=== PATIENT | female | born 1940 | race Caucasian/White ===

== ENCOUNTER 2016-09-08 16:06 | Emergency (ER) | payer MEDICARE, BC ==
[2016-09-08] MEDS ORDERED: Ibuprofen 400 MG TAB ONE (16:28)
[2016-09-08] MEDS ORDERED: Dexamethasone 4 MG TAB ONE (16:28)
--- NOTE | 2016-09-08 17:59 | ERRECORD ---
[facility] EMERGENCY RECORD HPI FLU-LIKE SYNDROME (16:33 BPIC) CHIEF COMPLAINT: Patient presents for evaluation of body aches, Patient presents for evaluation of fatigue, Patient presents for evaluation of fever, Patient presents for evaluation of upper respiratory infection. HISTORIAN: History provided by patient. LOCATION: Symptoms are generalized. SEVERITY: Maximum severity of symptoms moderate, Currently symptoms are moderate. TIME COURSE: Gradual onset of symptoms, There has been no change in the patient's symptoms over time, are constant. ASSOCIATED WITH: Associated with cough, Associated with headache. EXACERBATED BY: Patient's condition exacerbated by nothing. RELIEVED BY: Patient's condition relieved by nothing, Patient's condition relieved by over the counter medications, Some relief of symptoms transiently. ROS (16:33 BPIC) CONSTITUTIONAL: Negative constitutional review of systems, Historian reports chills, reports fatigue, reports fever, reports malaise. EYES: Negative eye review of systems, Historian denies eye pain, denies eye redness, denies eye discharge. ENT: Negative ears, nose, throat review of systems, Historian denies dysphasia, denies dysphonia, reports rhinorrhea, reports sore throat. CARDIOVASCULAR: Negative cardiovascular review of systems, Historian denies dyspnea on exertion. RESPIRATORY: Negative respiratory review of systems, Historian reports cough, denies shortness of breath, denies sputum. GI: Negative gastrointestinal review of systems, Historian denies abdominal pain, reports anorexia. Pt reports mild nausea. GENITOURINARY MALE: Negative genitourinary review of systems. MUSCULOSKELETAL: Negative musculoskeletal review of systems, Historian reports arthralgias, reports myalgias. SKIN: Negative skin review of systems. NEUROLOGIC: Negative neurologic review of systems, Historian denies focal weakness, denies gait changes, reports headache, denies irritability, denies lethargy. ENDOCRINE: Negative endocrine review of systems. HEMO/LYMPHATIC: Normal hematologic/lymphatic system review. ALLERGIC/IMMUNOLOGIC: Normal allergy/immunologic system review. PSYCHIATRIC: Negative psychiatric review of systems. NOTES: All other ROS negative except as noted in HPI. PAST MEDICAL HISTORY MEDICAL HISTORY: Notes: CANCER UNABLE TO REMEMER, Past medical history includes history of diabetes, Type II, Past medical history includes endocrine &a-1R&a+25V*p+0X*y2494M*c202B*c15G*c2P*p-0X&a-25V&a+1R Name: Orin Hagan : 1940 F75 MedRec: [id number] AcctNum: [id number] Prepared: TueSep 08, 2016 17:54 by Interface Page 1 of 4 pMD [facility] EMERGENCY RECORD disease, hypothyroidism, Past medical history includes history of hypertension, which has been treated, Past medical history includes musculoskeletal disorder, chronic back pain. (16:18 SFRE) FEMALE SURGICAL HISTORY: Surgical history of orthopedic surgery, BACK. (16:18 SFRE) PSYCHIATRIC HISTORY: No previous psychiatric history. (16:18 SFRE) SOCIAL HISTORY: Patient denies alcohol use, Patient denies drug use, Patient has no smoking history. (16:18 SFRE) NOTES: I have reviewed the nurses notes including PMH, PSxH, PSocH and agree with all. (16:33 BPIC) KNOWN ALLERGIES Sulfa (Sulfonamide Antibiotics) CURRENT MEDICATIONS metFORMIN: TABLET : Strength - 1,000 mg : ORAL Patient Dose: 1000 mg Oral 2 times a day. (16:23 SFRE) Onglyza: TABLET : Strength - 5 mg : ORAL Patient Dose: ?. (16:24 SFRE) losartan: TABLET : Strength - 25 mg : ORAL Patient Dose: 10 mg Oral once a day. (16:24 SFRE) VITAL SIGNS VITAL SIGNS: BP: 157/73, Pulse: 110, Resp: 18, Temp: 101.0 (Tympanic), Pain: 0, O2 sat: 98 on Room Air, Time: 09/08/2016 16:12. (16:12 SFRE) Temp: 100.8 (Tympanic), Time: 09/08/2016 17:23. (17:23 SFRE) BP: 130/42, Pulse: 98, Resp: 18, Temp: 100.8 (Oral), Pain: 0, O2 sat: 94 on Room Air, Time: 09/08/2016 17:28. (17:28 SFRE) PHYSICAL EXAM (16:33 BPIC) CONSTITUTIONAL: Vital signs reviewed, Patient appears non toxic, Patient alert and oriented to person, place and time. HEAD: Head exam included findings of head atraumatic, normocephalic. EYES: Eye exam included findings of eyelids normal to inspection, Pupils equally round and reactive to light, Extraocular muscles intact. ENT: Nose exam included findings of, There is some clear rhinorrhea. Nasal exam is otherwise normal., Pharynx, Mild erythema is present., Uvula exam normal, Tonsil exam normal, Mouth exam normal. NECK: Neck exam included findings of normal range of motion, Trachea midline. RESPIRATORY CHEST: Respiratory exam included findings of no &a-1R&a+25V*p+0X*y0585G*c202B*c15G*c2P*p-0X&a-25V&a+1R Name: Orin Hagan : 1940 F75 MedRec: [id number] AcctNum: [id number] Prepared: TueSep 08, 2016 17:54 by Interface Page 2 of 4 pMD [facility] EMERGENCY RECORD respiratory distress, Breath sounds clear, No rhonchi, Chest exam included findings of chest movement symmetrical, Chest expansion equal. CARDIOVASCULAR: Cardiovascular exam included findings of heart rate regular rate and rhythm, Heart sounds normal. ABDOMEN MALE: Abdominal exam included findings of abdomen nontender, Bowel sounds normal. BACK: Back exam normal. UPPER EXTREMITY: Upper extremity exam included findings of inspection normal, Range of motion normal. LOWER EXTREMITY: Lower extremity exam included findings of inspection normal, Range of motion normal. NEURO: Neuro exam findings include patient oriented to person, place and time, Speech normal, Gait normal. SKIN: Skin exam included findings of skin warm, dry, and normal in color. LYMPHATIC: Few shoddy nodes present in submandibular region. PSYCHIATRIC: Psychiatric exam included findings of patient oriented to person place and time, Normal affect. MEDICATION ADMINISTRATION SUMMARY Drug Name: Decadron oral, Dose Ordered: 8 mg, Route: Oral, Status: Given, Time: 16:09/08/2016, Drug Name: ibuprofen, Dose Ordered: 400 mg, Route: Oral, Status: Given, Time: 16:09/08/2016, Detailed record available in Medication Service section. DOCTOR NOTES (16:33 BPIC) TEXT: Signs and symptoms consistent with upper repiratory infection. Although this may be viral in origin, I am concerned that there may be a developing bacterial infection. Rx for antibiotics and close follow up with pcp recommended. Advised pt to return to the ED if she is worsening. PATIENT PLAN: The patient will be discharged, The patient will follow up with primary care physician. PROBLEM LIST No recorded problems DIAGNOSIS (17:23 BPIC) FINAL: PRIMARY: Influenza. PRESCRIPTION (17:23 BPIC) Tamiflu: CAPSULE : 75 mg : ORAL : Quantity: 75 Unit: mg Route: ORAL Schedule: 2 times a day Dispense: 10 Unit: cap(s) May substitute. Refills: No Refills . NOTES: No Refills. &a-1R&a+25V*p+0X*t0011H*c202B*c15G*c2P*p-0X&a-25V&a+1R Name: Orin Hagan : 1940 F75 MedRec: [id number] AcctNum: [id number] Prepared: TueSep 08, 2016 17:54 by Interface Page 3 of 4 pMD [facility] EMERGENCY RECORD DISPOSITION PATIENT: Disposition Type: Discharge, Disposition: *Discharge Home, Condition: Good. (17:23 BPIC) Patient left the department. (17:48 SFRE) Pastor: BPIC=MD Savanah, Zackary SFRE=KEITH Greer, Susi &a-1R&a+25V*p+0X*q7039E*c202B*c15G*c2P*p-0X&a-25V&a+1R Name: Orin Hagan Heriberto : 1940 F75 MedRec: [id number] AcctNum: [id number] Prepared: TueSep 08, 2016 17:54 by Interface Page 4 of 4 pMD [facility]
--- NOTE | 2016-09-08 18:05 | PICIS ---
[facility] EMERGENCY RECORD TRIAGE (TueSep 08, 2016 16:13 SFRE) TRIAGE NOTES: COUGH, CONGESTION, FEVER. (TueSep 08, 2016 16:13 SFRE) PATIENT: NAME: Orin Hagan, AGE: 75, GENDER: female, : [facility] 1940, TIME OF GREET: TueSep 08, 2016 16:07, PREFERRED LANGUAGE: Greenlandic, ETHNICITY: Not or , ECODE BILLING MAP: [facility], SSN: [id number], Zip Code: [address], KG WEIGHT: 51.71, PHONE: , , , PERSON ID: [id number], PCP: Paddy BALLESTEROS RICHARD. (TueSep 08, 2016 16:13 SFRE) COMPLAINT: FLU LIKE SYMPTOMS. (TueSep 08, 2016 16:13 SFRE) ADMISSION: URGENCY: 4 Non Urgent, ADMISSION SOURCE: Home, TRANSPORT: Walk-in, BED: ED -03. (TueSep 08, 2016 16:13 SFRE) PAIN: Pain is constant. (16:18 SFRE) IMMUNIZATIONS: Flu vaccine not up to date, Pneumococcal vaccine not up to date. (16:18 SFRE) PROVIDERS: TRIAGE NURSE: Susi Greer RN. (TueSep 08, 2016 16:13 SFRE) VITAL SIGNS: BP 157/73, Pulse 110, Resp 18, Temp 101.0, (Tympanic), Pain 0, O2 Sat 98, on Room Air, Time 09/08/2016 16:12. (16:12 SFRE) KNOWN ALLERGIES Sulfa (Sulfonamide Antibiotics) CURRENT MEDICATIONS metFORMIN: TABLET : Strength - 1,000 mg : ORAL Patient Dose: 1000 mg Oral 2 times a day. (16:23 SFRE) Onglyza: TABLET : Strength - 5 mg : ORAL Patient Dose: ?. (16:24 SFRE) losartan: TABLET : Strength - 25 mg : ORAL Patient Dose: 10 mg Oral once a day. (16:24 SFRE) VITAL SIGNS VITAL SIGNS: BP: 157/73, Pulse: 110, Resp: 18, Temp: 101.0 (Tympanic), Pain: 0, O2 sat: 98 on Room Air, Time: 09/08/2016 16:12. (16:12 SFRE) Temp: 100.8 (Tympanic), Time: 09/08/2016 17:23. (17:23 SFRE) BP: 130/42, Pulse: 98, Resp: 18, Temp: 100.8 (Oral), Pain: 0, O2 sat: 94 on Room Air, Time: 09/08/2016 17:28. (17:28 SFRE) NURSING ASSESSMENT: ENT (16:20 SFRE) CONSTITUTIONAL: Patient arrives ambulatory, Gait steady, History obtained from patient, Patient appears, generally ill, Patient cooperative, Patient alert, Oriented to person, place and time, Skin warm, Skin dry, Skin, pale in color, Mucous membranes pink, Mucous membranes moist, Patient is &a-1R&a+25V*p+0X*q1972T*c202B*c15G*c2P*p-0X&a-25V&a+1R Name: Orin Hagan : 1940 F75 MedRec: [id number] AcctNum: [id number] Prepared: TueSep 08, 2016 18:45 by Interface Page 1 of 7 pMD [facility] EMERGENCY RECORD well-groomed, Patient complains of flu like symptoms. PAIN: denies pain but looks very uncomfortable, Pain level 4 Hurts [place] More, using faces pain scoring. ENT: Congestion, bilaterally, Mouth and throat assessment findings include mouth inspection normal, Uvula normal, Tonsils normal, Mucous membranes pink, and moist, Able to swallow, Speech normal, Associated with fever, Maximum temperature (degree F) 101.0, tympanically. RESPIRATORY/CHEST: Respiratory assessment findings include respiratory effort easy, Respirations regular, Conversing normally, Neck and chest exam findings include trachea midline, Chest expansion equal, Chest movement symmetrical, no signs of distress, Associated with cough, productive of, yellow sputum, Associated with fever, Maximum temperature 101.0, tympanic. SAFETY: Side rails up, Cart/Stretcher in lowest position, Family at bedside, Call light within reach, Hospital ID band on. NURSING PROCEDURE: DISCHARGE NOTE (17:34 SFRE) DISCHARGE: Patient discharged to home, ambulating without assistance, family driving, accompanied by //partner, Summary of Care printed/ provided, Patient requested and was provided an electronic copy of Discharge Instructions, Discharge instructions given to patient, Simple or moderate discharge teaching performed, by KEITH RIVERA, F/U WITH PCP. RX DIRECTED. RETURN TO ED NEEDED FOR NEW/CONCERNING OR WORSENING SYMPTOMS., Prescriptions given and instructions on side effects given, Name of prescription(s) given: TAMIFLU, Above person(s) verbalized understanding of discharge instructions and follow-up care, Notes: IBUPROFEN/TYLENOL FOR FEVEROR PAIN. INCREASE PO FLUIDS. NURSING PROCEDURE: NURSE NOTES (16:33 SFRE) NURSES NOTES: Notes: FLU AND STREP SWABS OBTAINED, LABELED AND SENT TO LAB. ORDER DETAILS Order Name: Influenza A&B Ag Screen, Status: Active, Time: 16:25 09/08/2016, User: VAHID, - Ordered for: MD Pavon Bryan, - Entered by: MD Pavon Bryan - [facility] Sep 08, 2016 16:25, - Quantity: 1, Order Name: Strep Group A Screen, Status: Active, Time: 16:25 09/08/2016, User: VAHID, - Ordered for: MD Pavon Bryan, - Entered by: MD Pavon Bryan - [facility] Sep 08, 2016 16:25, - Quantity: 1. MEDICATION ADMINISTRATION SUMMARY &a-1R&a+25V*p+0X*c5498K*c202B*c15G*c2P*p-0X&a-25V&a+1R Name: Orin Hagan : 1940 F75 MedRec: [id number] AcctNum: [id number] Prepared: TueSep 08, 2016 18:45 by Interface Page 2 of 7 pMD [facility] EMERGENCY RECORD Drug Name: Decadron oral, Dose Ordered: 8 mg, Route: Oral, Status: Given, Time: 16:31 09/08/2016, Drug Name: ibuprofen, Dose Ordered: 400 mg, Route: Oral, Status: Given, Time: 16:31 09/08/2016, Detailed record available in Medication Service section. MEDICATION SERVICE (16:31 [facility]) Decadron oral: Order: Decadron oral (dexamethasone) - Dose: 8 mg : Oral Schedule: Now Ordered by: Jasper Pavon MD Entered by: Jasper Pavon MD TueSep 08, 2016 16:25 , Acknowledged by: Susi Greer RN TueSep 08, 2016 16:27 Documented as given by: Susi Greer RN TueSep 08, 2016 16:31 Patient, Medication, Dose, Route and Time verified prior to administration. Amount given: 8mg, Site: Medication administered P.O., Correct patient, time, route, dose and medication confirmed prior to administration, Patient advised of actions and side-effects prior to administration, Allergies confirmed and medications reviewed prior to administration, Patient in position of comfort, Side rails up, Cart in lowest position, Family at bedside. ibuprofen: Order: ibuprofen - Dose: 400 mg : Oral Ordered by: Jasper Pavon MD Entered by: Jasper Pavon MD TueSep 08, 2016 16:26 , Acknowledged by: Susi Greer RN TueSep 08, 2016 16:27 Documented as given by: Susi Greer RN TueSep 08, 2016 16:31 Patient, Medication, Dose, Route and Time verified prior to administration. Amount given: 400mg, Site: Medication administered P.O., Correct patient, time, route, dose and medication confirmed prior to administration, Patient advised of actions and side-effects prior to administration, Allergies confirmed and medications reviewed prior to administration, Patient in position of comfort, Side rails up, Cart in lowest position, Family at bedside. HPI FLU-LIKE SYNDROME (16:33 BPIC) CHIEF COMPLAINT: Patient presents for evaluation of body aches, Patient presents for evaluation of fatigue, Patient presents for evaluation of fever, Patient presents for evaluation of upper respiratory infection. HISTORIAN: History provided by patient. LOCATION: Symptoms are generalized. SEVERITY: Maximum severity of symptoms moderate, Currently symptoms are moderate. TIME COURSE: Gradual onset of symptoms, There has been no change in the patient's symptoms over time, are constant. ASSOCIATED WITH: Associated with cough, Associated with headache. EXACERBATED BY: Patient's condition exacerbated by nothing. RELIEVED BY: Patient's &a-1R&a+25V*p+0X*n9233L*c202B*c15G*c2P*p-0X&a-25V&a+1R Name: Orin Hagan : 1940 F75 MedRec: [id number] AcctNum: [id number] Prepared: TueSep 08, 2016 18:45 by Interface Page 3 of 7 pMD [facility] EMERGENCY RECORD condition relieved by nothing, Patient's condition relieved by over the counter medications, Some relief of symptoms transiently. ROS (16:33 BPIC) CONSTITUTIONAL: Negative constitutional review of systems, Historian reports chills, reports fatigue, reports fever, reports malaise. EYES: Negative eye review of systems, Historian denies eye pain, denies eye redness, denies eye discharge. ENT: Negative ears, nose, throat review of systems, Historian denies dysphasia, denies dysphonia, reports rhinorrhea, reports sore throat. CARDIOVASCULAR: Negative cardiovascular review of systems, Historian denies dyspnea on exertion. RESPIRATORY: Negative respiratory review of systems, Historian reports cough, denies shortness of breath, denies sputum. GI: Negative gastrointestinal review of systems, Historian denies abdominal pain, reports anorexia. Pt reports mild nausea. GENITOURINARY MALE: Negative genitourinary review of systems. MUSCULOSKELETAL: Negative musculoskeletal review of systems, Historian reports arthralgias, reports myalgias. SKIN: Negative skin review of systems. NEUROLOGIC: Negative neurologic review of systems, Historian denies focal weakness, denies gait changes, reports headache, denies irritability, denies lethargy. ENDOCRINE: Negative endocrine review of systems. HEMO/LYMPHATIC: Normal hematologic/lymphatic system review. ALLERGIC/IMMUNOLOGIC: Normal allergy/immunologic system review. PSYCHIATRIC: Negative psychiatric review of systems. NOTES: All other ROS negative except as noted in HPI. PAST MEDICAL HISTORY MEDICAL HISTORY: Notes: CANCER UNABLE TO REMEMER, Past medical history includes history of diabetes, Type II, Past medical history includes endocrine disease, hypothyroidism, Past medical history includes history of hypertension, which has been treated, Past medical history includes musculoskeletal disorder, chronic back pain. (16:18 SFRE) FEMALE SURGICAL HISTORY: Surgical history of orthopedic surgery, BACK. (16:18 SFRE) PSYCHIATRIC HISTORY: No previous psychiatric history. (16:18 SFRE) SOCIAL HISTORY: Patient denies alcohol use, Patient denies drug use, Patient has no smoking history. (16:18 SFRE) NOTES: I have reviewed the nurses notes including PMH, PSxH, PSocH and agree with all. (16:33 BPIC) PHYSICAL EXAM (16:33 BPIC) &a-1R&a+25V*p+0X*n9926I*c202B*c15G*c2P*p-0X&a-25V&a+1R Name: Orin Hagan : 1940 F75 MedRec: [id number] AcctNum: [id number] Prepared: TueSep 08, 2016 18:45 by Interface Page 4 of 7 pMD [facility] EMERGENCY RECORD CONSTITUTIONAL: Vital signs reviewed, Patient appears non toxic, Patient alert and oriented to person, place and time. HEAD: Head exam included findings of head atraumatic, normocephalic. EYES: Eye exam included findings of eyelids normal to inspection, Pupils equally round and reactive to light, Extraocular muscles intact. ENT: Nose exam included findings of, There is some clear rhinorrhea. Nasal exam is otherwise normal., Pharynx, Mild erythema is present., Uvula exam normal, Tonsil exam normal, Mouth exam normal. NECK: Neck exam included findings of normal range of motion, Trachea midline. RESPIRATORY CHEST: Respiratory exam included findings of no respiratory distress, Breath sounds clear, No rhonchi, Chest exam included findings of chest movement symmetrical, Chest expansion equal. CARDIOVASCULAR: Cardiovascular exam included findings of heart rate regular rate and rhythm, Heart sounds normal. ABDOMEN MALE: Abdominal exam included findings of abdomen nontender, Bowel sounds normal. BACK: Back exam normal. UPPER EXTREMITY: Upper extremity exam included findings of inspection normal, Range of motion normal. LOWER EXTREMITY: Lower extremity exam included findings of inspection normal, Range of motion normal. NEURO: Neuro exam findings include patient oriented to person, place and time, Speech normal, Gait normal. SKIN: Skin exam included findings of skin warm, dry, and normal in color. LYMPHATIC: Few shoddy nodes present in submandibular region. PSYCHIATRIC: Psychiatric exam included findings of patient oriented to person place and time, Normal affect. EVENTS TRANSFER: Triage to Emergency Main ED -03. (TueSep 08, 2016 16:13 SFRE) Removed from Emergency Main ED -03. (17:48 SFRE) DOCTOR NOTES (16:33 BPIC) TEXT: Signs and symptoms consistent with upper repiratory infection. Although this may be viral in origin, I am concerned that there may be a developing bacterial infection. Rx for antibiotics and close follow up with pcp recommended. Advised pt to return to the ED if she is worsening. PATIENT PLAN: The patient will be discharged, The patient will follow up with primary care physician. PROBLEM LIST &a-1R&a+25V*p+0X*r2423C*c202B*c15G*c2P*p-0X&a-25V&a+1R Name: Orin Hagan : 1940 F75 MedRec: [id number] AcctNum: [id number] Prepared: TueSep 08, 2016 18:45 by Interface Page 5 of 7 pMD [facility] EMERGENCY RECORD No recorded problems DIAGNOSIS (17:23 BPIC) FINAL: PRIMARY: Influenza. DISPOSITION PATIENT: Disposition Type: Discharge, Disposition: *Discharge Home, Condition: Good. (17:23 BPIC) Patient left the department. (17:48 SFRE) INSTRUCTION (17:23 BPIC) DISCHARGE: INFLUENZA (ADULT). FOLLOWUP: Paddy BALLESTEROS, [address], [address], [place] [address], . SPECIAL: Please follow up with your physician in the next 2-3 days. Return to the Emergency Room with any worsening of your symptoms or other emergent concerns. Thank you for choosing [facility] Emergency Department for your care today, and God Bless You!. PRESCRIPTION (17:23 BPIC) Tamiflu: CAPSULE : 75 mg : ORAL : Quantity: 75 Unit: mg Route: ORAL Schedule: 2 times a day Dispense: 10 Unit: cap(s) May substitute. Refills: No Refills . NOTES: No Refills. IMAGING (17:37 SFRE) *DISCHARGE INSTRUCTIONS RECEIPT: Image captured from scanner. *SUPPLY CHARGE SHEET: Image captured from scanner. ADMIN (18:34 BPIC) DIGITAL SIGNATURE: MD Pavon Bryan. RESULTS (17:29 SFRE) MICROBIOLOGY: Influenza A&B Ag Screen: [id number] Collection DT: TueSep 08, 2016 16:34, See comment below , @ ER ROOM#: ED-03 Source: Nasal swab Spec Desc: , *Influenza A Antigen: POSITIVE for the , * presence of , * INFLUENZA A Antigen , * - H , Influenza B Antigen: NEGATIVE for the , presence of , INFLUENZA B Antigen , The rapid Flu A&B test can distinguish between influenza A , Influenza A&B Ag Screen See comment below , and B viruses, but it does not differentiate influenza , Influenza A&B Ag Screen See comment below , subtypes. , &a-1R&a+25V*p+0X*g6342O*c202B*c15G*c2P*p-0X&a-25V&a+1R Name: Orin Hagan : 1940 F75 MedRec: [id number] AcctNum: [id number] Prepared: TueSep 08, 2016 18:45 by Interface Page 6 of 7 pMD [facility] EMERGENCY RECORD Influenza A&B Ag Screen See comment below , Influenza A&B Ag Screen See comment below , Influenza A&B Ag Screen See comment below , Influenza A&B Ag Screen See comment below , characteristics of this device with human specimens infected , Influenza A&B Ag Screen See comment below , with the 2008 H1N1 influenza virus have not been , Influenza A&B Ag Screen See comment below , established. For example: this test cannot distinguish , Influenza A&B Ag Screen See comment below , influenza infections caused by novel H1N1 influenza A , Influenza A&B Ag Screen See comment below , viruses versus seasonal influenza A viruses. , Influenza A&B Ag Screen See comment below , , Influenza A&B Ag Screen See comment below , A negative result does not exclude influenza virus , Influenza A&B Ag Screen See comment below , infection; therefore, if more conclusive testing is desired, , Influenza A&B Ag Screen See comment below , follow up confirmatory testing is warranted., Influenza A&B Ag Screen See comment below . Strep Group A Screen: [id number] Collection DT: TueSep 08, 2016 16:34, See comment below , @ ER ROOM#: ED-03 Source: Throat Spec Desc: PENDING, Strep A Negative CDC recommends , confirmation by , culture on all , negative , Strep negative line 1 Group A , Streptococcus rapid , screens. Please , order , Strep negative line 2 a throat culture if , clinically , indicated. , Rapid Strep Screen:Throat Negative . Pastor: BPIC=MD Savanah, [place] SFRE=KEITH Greer, Susi &a-1R&a+25V*p+0X*m0743N*c202B*c15G*c2P*p-0X&a-25V&a+1R Name: Orin Hagan Heriberto : 1940 F75 MedRec: [id number] AcctNum: [id number] Prepared: Raúl Sep 08, 2016 18:45 by Interface Page 7 of 7 pMD MTDD
--- NOTE | 2016-09-08 18:08 | ERRECORD ---
[facility] HPI FLU-LIKE SYNDROME (16:33 BPIC) CHIEF COMPLAINT: Patient presents for evaluation of body aches, Patient presents for evaluation of fatigue, Patient presents for evaluation of fever, Patient presents for evaluation of upper respiratory infection. HISTORIAN: History provided by patient. LOCATION: Symptoms are generalized. SEVERITY: Maximum severity of symptoms moderate, Currently symptoms are moderate. TIME COURSE: Gradual onset of symptoms, There has been no change in the patient's symptoms over time, are constant. ASSOCIATED WITH: Associated with cough, Associated with headache. EXACERBATED BY: Patient's condition exacerbated by nothing. RELIEVED BY: Patient's condition relieved by nothing, Patient's condition relieved by over the counter medications, Some relief of symptoms transiently. ROS (16:33 BPIC) CONSTITUTIONAL: Negative constitutional review of systems, Historian reports chills, reports fatigue, reports fever, reports malaise. EYES: Negative eye review of systems, Historian denies eye pain, denies eye redness, denies eye discharge. ENT: Negative ears, nose, throat review of systems, Historian denies dysphasia, denies dysphonia, reports rhinorrhea, reports sore throat. CARDIOVASCULAR: Negative cardiovascular review of systems, Historian denies dyspnea on exertion. RESPIRATORY: Negative respiratory review of systems, Historian reports cough, denies shortness of breath, denies sputum. GI: Negative gastrointestinal review of systems, Historian denies abdominal pain, reports anorexia. Pt reports mild nausea. GENITOURINARY MALE: Negative genitourinary review of systems. MUSCULOSKELETAL: Negative musculoskeletal review of systems, Historian reports arthralgias, reports myalgias. SKIN: Negative skin review of systems. NEUROLOGIC: Negative neurologic review of systems, Historian denies focal weakness, denies gait changes, reports headache, denies irritability, denies lethargy. ENDOCRINE: Negative endocrine review of systems. HEMO/LYMPHATIC: Normal hematologic/lymphatic system review. ALLERGIC/IMMUNOLOGIC: Normal allergy/immunologic system review. PSYCHIATRIC: Negative psychiatric review of systems. NOTES: All other ROS negative except as noted in HPI. PAST MEDICAL HISTORY MEDICAL HISTORY: Notes: CANCER UNABLE TO REMEMER, Past medical history includes history of diabetes, Type II, Past medical history includes endocrine &a-1R&a+25V*p+0X*[id number]*c202B*c15G*c2P*p-0X&a-25V&a+1R Name: Orin Hagan : 1940 F75 MedRec: [id number] AcctNum: [id number] Prepared: TueSep 08, 2016 18:39 by Interface Page 1 of 4 pMD [facility] RECORD disease, hypothyroidism, Past medical history includes history of hypertension, which has been treated, Past medical history includes musculoskeletal disorder, chronic back pain. (16:18 SFRE) FEMALE SURGICAL HISTORY: Surgical history of orthopedic surgery, BACK. (16:18 SFRE) PSYCHIATRIC HISTORY: No previous psychiatric history. (16:18 SFRE) SOCIAL HISTORY: Patient denies alcohol use, Patient denies drug use, Patient has no smoking history. (16:18 SFRE) NOTES: I have reviewed the nurses notes including PMH, PSxH, PSocH and agree with all. (16:33 BPIC) KNOWN ALLERGIES Sulfa (Sulfonamide Antibiotics) CURRENT MEDICATIONS metFORMIN: TABLET : Strength - 1,000 mg : ORAL Patient Dose: 1000 mg Oral 2 times a day. (16:23 SFRE) Onglyza: TABLET : Strength - 5 mg : ORAL Patient Dose: ?. (16:24 SFRE) losartan: TABLET : Strength - 25 mg : ORAL Patient Dose: 10 mg Oral once a day. (16:24 SFRE) VITAL SIGNS VITAL SIGNS: BP: 157/73, Pulse: 110, Resp: 18, Temp: 101.0 (Tympanic), Pain: 0, O2 sat: 98 on Room Air, Time: 09/08/2016 16:12. (16:12 SFRE) Temp: 100.8 (Tympanic), Time: 09/08/2016 17:23. (17:23 SFRE) BP: 130/42, Pulse: 98, Resp: 18, Temp: 100.8 (Oral), Pain: 0, O2 sat: 94 on Room Air, Time: 09/08/2016 17:28. (17:28 SFRE) PHYSICAL EXAM (16:33 BPIC) CONSTITUTIONAL: Vital signs reviewed, Patient appears non toxic, Patient alert and oriented to person, place and time. HEAD: Head exam included findings of head atraumatic, normocephalic. EYES: Eye exam included findings of eyelids normal to inspection, Pupils equally round and reactive to light, Extraocular muscles intact. ENT: Nose exam included findings of, There is some clear rhinorrhea. Nasal exam is otherwise normal., Pharynx, Mild erythema is present., Uvula exam normal, Tonsil exam normal, Mouth exam normal. NECK: Neck exam included findings of normal range of motion, Trachea midline. RESPIRATORY CHEST: Respiratory exam included findings of no &a-1R&a+25V*p+0X*t5630C*c202B*c15G*c2P*p-0X&a-25V&a+1R Name: Orin Hagan : 1940 F75 MedRec: [id number] AcctNum: [id number] Prepared: TueSep 08, 2016 18:39 by Interface Page 2 of 4 pMD [facility] RECORD respiratory distress, Breath sounds clear, No rhonchi, Chest exam included findings of chest movement symmetrical, Chest expansion equal. CARDIOVASCULAR: Cardiovascular exam included findings of heart rate regular rate and rhythm, Heart sounds normal. ABDOMEN MALE: Abdominal exam included findings of abdomen nontender, Bowel sounds normal. BACK: Back exam normal. UPPER EXTREMITY: Upper extremity exam included findings of inspection normal, Range of motion normal. LOWER EXTREMITY: Lower extremity exam included findings of inspection normal, Range of motion normal. NEURO: Neuro exam findings include patient oriented to person, place and time, Speech normal, Gait normal. SKIN: Skin exam included findings of skin warm, dry, and normal in color. LYMPHATIC: Few shoddy nodes present in submandibular region. PSYCHIATRIC: Psychiatric exam included findings of patient oriented to person place and time, Normal affect. MEDICATION ADMINISTRATION SUMMARY Drug Name: Decadron oral, Dose Ordered: 8 mg, Route: Oral, Status: Given, Time: 16:09/08/2016, Drug Name: ibuprofen, Dose Ordered: 400 mg, Route: Oral, Status: Given, Time: 16:09/08/2016, Detailed record available in Medication Service section. DOCTOR NOTES (16:33 BPIC) TEXT: Signs and symptoms consistent with upper repiratory infection. Although this may be viral in origin, I am concerned that there may be a developing bacterial infection. Rx for antibiotics and close follow up with pcp recommended. Advised pt to return to the ED if she is worsening. PATIENT PLAN: The patient will be discharged, The patient will follow up with primary care physician. PROBLEM LIST No recorded problems DIAGNOSIS (17:23 BPIC) FINAL: PRIMARY: Influenza. PRESCRIPTION (17:23 BPIC) Tamiflu: CAPSULE : 75 mg : ORAL : Quantity: 75 Unit: mg Route: ORAL Schedule: 2 times a day Dispense: 10 Unit: cap(s) May substitute. Refills: No Refills . NOTES: No Refills. &a-1R&a+25V*p+0X*d5461W*c202B*c15G*c2P*p-0X&a-25V&a+1R Name: Orin Hagan : 1940 F75 MedRec: [id number] AcctNum: [id number] Prepared: TueSep 08, 2016 18:39 by Interface Page 3 of 4 pMD [facility] RECORD DISPOSITION PATIENT: Disposition Type: Discharge, Disposition: *Discharge Home, Condition: Good. (17:23 BPIC) Patient left the department. (17:48 SFRE) Pastor: BPIC=MD Savanah, Zackary SFRE=KEITH Greer, Susi &a-1R&a+25V*p+0X*x3962C*c202B*c15G*c2P*p-0X&a-25V&a+1R Name: Orin Hagan Heriberto : 1940 F75 MedRec: [id number] AcctNum: [id number] Prepared: TueSep 08, 2016 18:39 by Interface Page 4 of 4 pMD [facility]
== END 2016-09-08 17:35 | disposition home or self-care (01) ==
LOC: MADERS 16:06
DX: J11.1 Influenza due to unidentified influenza virus with other respiratory manifestations (principal); E03.9 Hypothyroidism, unspecified; E11.9 Type 2 diabetes mellitus without complications; I10 Essential (primary) hypertension
CPT/HCPCS: 87430; 99283; J8540

== ENCOUNTER 2017-02-21 16:24 | Inpatient (IN) | payer MEDICARE, BC ==
[2017-02-21] MEDS ORDERED: Ondansetron ODT 4 MG TAB PO PRN (17:04)
[2017-02-21] MEDS ORDERED: Dextrose 5% in Water 1,000 ML IV PRN (17:08)
[2017-02-21] MEDS ORDERED: HumaLOG 300 UNITS/3 ML VIAL SC PRN (17:08)
[2017-02-21] MEDS ORDERED: Dextrose 50% Abboject 50 ML SYRINGE SLOW IVP PRN (17:08)
[2017-02-21 17:58] LABS: Band 13 % (5-11); Elliptocytes SLIGHT = 2-5 cells (100X) (0-1/hpf); Hemoglobin 10.3 g/dL (12.0-16.0); Lymphocytes 13 % (21-51); MDiff Complete? YES; Mean Corpuscular HGB CONC 32.9 g/dL (32.0-36.0); Mean Corpuscular Hemoglobin 31.4 pg (27.0-31.0); Mean Corpuscular Volume 95.7 fl (81.0-99.0); Mean Platelet Volume 6.8 fL (7.4-10.4); Neutrophil 74 % (42-75); Platelet Count 187 thou/uL (130-400); RBC Distribution Width 15.4 % (11.5-14.5); Red Blood Cell (RBC) Count 3.27 mill/uL (4.20-5.40); Tear Drops SLIGHT = 2-5 cells (100X) (0-1/hpf); White Blood Cell (WBC) Count 20.9 thou/uL (4.8-10.8)
[2017-02-21 18:05] LABS: ALT (SGPT) 24 U/L (8-55); AST (SGOT) 20 U/L (5-34); Albumin 3.8 g/dL (3.4-4.8); Alkaline Phosphatase 65 U/L (40-150); Anion Gap 18 mmol/L (10-20); BUN (Urea Nitrogen) 23 mg/dL (9.8-20.1); Bilirubin, Total 0.6 mg/dL (0.2-1.2); Calc. Creatinine Clearance 28 mL/min (70-130); Calcium 9.7 mg/dL (7.8-10.44); Carbon Dioxide 22 mmol/L (23-31); Chloride 103 mmol/L (98-107); Estimated GFR-MDRD 37; Globulin 2.8 g/dL (2.4-3.5); Glucose 207 mg/dL (83-110); Potassium 4.5 mmol/L (3.5-5.1); Protein, Total 6.6 g/dL (6.0-8.3); Sodium 138 mmol/L (136-145)
[2017-02-21] MEDS: Sodium Chloride 0.9% 1,000 ML IV SCH (18:16)
[2017-02-21 18:25] LABS: Bilirubin Negative (Negative); Clarity Cloudy (Clear); Glucose, Urine (Dipstick) Negative (Negative); Leukocyte Large (Negative); Nitrite Positive (Negative); Protein, Urine (Dipstick) > or equal to 300 mg/dL (Neg-Trace); Urobilinogen 0.2 mg/dL (0.2-1.0)
[2017-02-21 18:26] LABS: Bacteria/HPF 1+ HPF (None Seen); Blood, Urine Moderate (Negative); Other Microscopic Description C&S SET UP; Squamous Epithelial 0-3 HPF (0-3)
--- NOTE | 2017-02-21 19:35 | CT ---
CT HEAD WITHOUT CONTRAST 02/21/2017 HISTORY: Episodes of confusion. COMPARISON: None available. TECHNIQUE: Serial axial CT imaging at 5 mm intervals, from the vertex through the skull base, without contrast. FINDINGS: The imaged paranasal sinuses/mastoid air cells demonstrate mild mucosal thickening within the left s phenoid sinus. There is no displaced calvarial fracture. There is atherosclerotic calcification of the cavernous carotid arteries. There is no intracranial hemorrhage, midline shift, mass effect, o r ventricular enlargement. Mild cerebral volume loss noted. IMPRESSION: No intracranial hemorrhage. POS: [facility]
[2017-02-21] MEDS: Alogliptin Benzoate 25 MG TABLET PO SCH (20:46)
[2017-02-22] MEDS: Acetaminophen 325 MG TAB PO PRN ×2 (00:20→12:02)
[2017-02-22] MEDS: Levothyroxine Sodium 25 MCG TAB PO SCH (05:06)
--- NOTE | 2017-02-22 06:45 | HP ---
DATE OF ADMISSION: 02/21/2017 PRIMARY CARE PHYSICIAN: Diane Kimball M.D. ADMITTING PHYSICIAN: Diane Kimball M.D. CHIEF COMPLAINT: Fever, chills, vomiting, dysuria, uncontrolled hyperglycemia, and confusion. HISTORY OF PRESENT ILLNESS: Ms. Hagan is a 76-year-old female with history of diabetes type 2, colon cancer in 2012, hypothyroidism, depression, hyperlipidemia, hypertension, who presented to my office today due to 1-day history of hematuria, fever, chills, vomiting, decreased oral intake, and right lower quadrant pain that started yesterday. Patient stated she vomited about 3- 4 times yesterday and had fevers and chills. She states she woke up early this morning, feeling very cold and clammy, shaky, just not feeling well. She attempted to call daughter and was unable to reach, so she called a friend. Daughter states she tried calling mother multiple times, but the house phone rung and nobody picked up, but by the time daughter called 911 as she was scared something was going on. Daughter and EMS got to the house, patient was there with the house phone in hand and did not answer the phone stating she never heard it ring. Patient during interrogation of questions, was unable to answer majority of the questions, and she was noted to have blood sugars in the 350s. Patient was given 16 units of Humalog and she had declined going to the emergency room then. Patient woke up this morning with still elevated blood sugar, feeling very weak, lethargic, and daughter decided to bring her in today. Patient states she has not had anything to eat or drink in about 2 days. She lives with her aged , who is also hard of hearing and he was in unaware of events that happened overnight as he did not wake up through it all. Patient complains of general weakness. Denies any falls, denies any head trauma. Daughter concerned about possibility of stroke or some acute illness. She denies any history of UTIs in the past or any history of hematuria in the past. When I evaluated the patient, she was able to answer questions. She was oriented x3. She appears to be very pale and weak. Patient, daughter, and myself made a decision, it will be best to admit patient for IV antibiotics and IV fluids and further workup as deemed necessary. PAST MEDICAL HISTORY: Hypertension, hypothyroidism, colon cancer in 2012, diabetes type 2, depression, carotid blockage, and iron infusions x2. PAST SURGICAL HISTORY: Spine surgery and compression fractures. FAMILY HISTORY: Noncontributory. SOCIAL HISTORY: Former smoker. Lived with elderly . No alcohol or illicit drug use. ALLERGIES: SULFA, TAMIFLU, TAPE, TETANUS. CODE STATUS: FULL CODE. MEDICATIONS: Metformin 1000 mg q.a.m., 500 mg at bedtime; Onglyza 5 mg daily; levothyroxine of 25 mcg half tablet on an empty stomach in the morning; Crestor one tablet every day; losartan 250 mg once a day; fluoxetine 10 mg once a day, takes every other day; aspirin 81 mg once daily; multivitamin daily; Humalog sliding scale; probiotic 1 capsule daily; multivitamin 1 capsule daily; vitamin D3 of 2000 units 1 cap daily. REVIEW OF SYSTEMS: Complete review of systems was negative, otherwise mentioned in H\T\P or below. Constitutional: Denies weight loss, weight gain. Complains of fevers, chills, lethargy. Cardiovascular: Denies chest pain, palpitation, orthopnea. Respiratory: Denies cough, shortness of breath, congestion. Gastrointestinal: Complains of abdominal pain, poor appetite. Denies diarrhea or constipation. Genitourinary: Complains of urinary frequency , dysuria, hematuria, or urgency. Musculoskeletal: Complains of left lower back pain. Denies joint pain, swelling, pain, erythema. Neurological: Noted to be confused. Denies headaches or blurry vision. Skin: Denies rashes, bleeding tendency. HEENT: Denies nosebleeds, sore throats double vision. PHYSICAL EXAMINATION: VITAL SIGNS: Temperature 98.3, pulse 90, respiration rate 18, blood pressure 110/42, O2 sat 97% on room air. GENERAL: Patient is a very pleasant 76-year-old female, mildly ill appearing, in no apparent distress. HEENT: Normocephalic, atraumatic. Pupils round and reactive to light. Sclerae nonicteric. Oral mucosa membranes dry. Conjunctivae pale. NECK: Supple without thyromegaly or lymphadenopathy. No JVD. CARDIOVASCULAR: S1, S2, no murmurs. LUNGS: Clear to auscultation bilaterally. ABDOMEN: Positive bowel sounds, soft, positive suprapubic tenderness. Positive CVA to the right. EXTREMITIES: No clubbing, cyanosis, or edema. NEUROLOGIC: Alert, awake, oriented x3. No focal deficits. ASSESSMENT AND PLAN: This is a 76-year-old female with a history of colon cancer in 2011, diabetes mellitus, hyperlipidemia, depression, hypothyroidism, who presented to the office complaining of dysuria, confusion, nausea, vomiting, dehydration. Patient is admitted to the medical floor for urinary tract infection, dehydration, and confusion. Patient will be started on IV antibiotic with Levaquin once a day. We will restart patient's home medications. We will order stat labs, CBC, CMP, urinalysis, urine culture. We will order CAT scan of the head due to episodes of confusion. We placed patient on IV fluids and normal saline at 100 mL per hour. We will place patient on sliding scale with Humalog. We will replete electrolytes and monitor for any hemodynamic instability. We will place patient on gastrointestinal prophylaxis with Protonix and deep venous thrombosis prophylaxis with TORY hose. The case discussed with daughter in room with patient. CODE STATUS: Patient is a FULL CODE. DISPOSITION: Anticipate greater than 2 midnights stay. Given dehydration. Dysuria, hematuria, episodes of hyperglycemia, and confusion. MTDD
[2017-02-22] MEDS: Sodium Chloride 0.9% 1,000 ML IV SCH ×2 (06:59→16:40)
[2017-02-22] MEDS: HumaLOG 300 UNITS/3 ML VIAL SC PRN (07:50)
[2017-02-22] MEDS: Aspirin 81 mg Enteric Coated Tablet PO SCH (08:21)
[2017-02-22] MEDS: Multivit, Therapeutic 1 TAB PO SCH (08:21)
[2017-02-22] MEDS: Losartan Potassium 25 MG TAB PO SCH (08:21)
[2017-02-22] MEDS: metFORMIN HCl XR 500 MG TAB PO SCH (08:21)
[2017-02-22] MEDS: Floranex Packet PO SCH (08:21)
[2017-02-22 14:16] VITALS: BMI 21.7
[2017-02-22] MEDS: Alogliptin Benzoate 25 MG TABLET PO SCH (21:09)
[2017-02-22] MEDS ORDERED: Loperamide HCl 2 MG CAP PO PRN (21:53)
[2017-02-22] MEDS ORDERED: Loperamide HCl 2 MG CAP PO SCH (22:00)
[2017-02-23] MEDS: Acetaminophen 325 MG TAB PO PRN ×2 (00:21→19:57)
[2017-02-23] MEDS: Sodium Chloride 0.9% 1,000 ML IV SCH ×4 (05:16→17:54)
[2017-02-23] MEDS: Levothyroxine Sodium 25 MCG TAB PO SCH (05:17)
[2017-02-23 05:55] LABS: Anion Gap 11 mmol/L (10-20); BUN (Urea Nitrogen) 20 mg/dL (9.8-20.1); Calc. Creatinine Clearance 26 mL/min (70-130); Calcium 8.6 mg/dL (7.8-10.44); Carbon Dioxide 20 mmol/L (23-31); Chloride 113 mmol/L (98-107); Estimated GFR-MDRD 34; Glucose 157 mg/dL (83-110); Potassium 3.7 mmol/L (3.5-5.1); Sodium 140 mmol/L (136-145)
[2017-02-23 06:10] LABS: Hemoglobin 8.2 g/dL (12.0-16.0); Mean Corpuscular HGB CONC 32.6 g/dL (32.0-36.0); Mean Corpuscular Hemoglobin 31.3 pg (27.0-31.0); Mean Corpuscular Volume 96.1 fl (81.0-99.0); Mean Platelet Volume 7.1 fL (7.4-10.4); Platelet Count 108 thou/uL (130-400); RBC Distribution Width 15.7 % (11.5-14.5); White Blood Cell (WBC) Count 9.1 thou/uL (4.8-10.8)
[2017-02-23 06:38] LABS: Manual Diff?? YES
[2017-02-23 06:39] LABS: Band 2 % (5-11); Eosinophils 1 % (0-10); Lymphocytes 5 % (21-51); MDiff Complete? YES; Monocytes 4 % (0-10); Neutrophil 88 % (42-75); RBC Morphology Normal
[2017-02-23 06:40] LABS: PLT Morphology Comment Appears Decreased
[2017-02-23] MEDS: metFORMIN HCl XR 500 MG TAB PO SCH (09:25)
[2017-02-23] MEDS: Losartan Potassium 25 MG TAB PO SCH (09:25)
[2017-02-23] MEDS: Multivit, Therapeutic 1 TAB PO SCH (09:25)
[2017-02-23] MEDS: Aspirin 81 mg Enteric Coated Tablet PO SCH (09:25)
[2017-02-23] MEDS: Floranex Packet PO SCH (09:26)
[2017-02-23] MEDS: FLUoxetine HCl 10 MG CAP PO SCH (09:26)
[2017-02-23] MEDS: HumaLOG 300 UNITS/3 ML VIAL SC PRN ×2 (12:15→17:00)
[2017-02-23] MEDS: Alogliptin Benzoate 25 MG TABLET PO SCH (20:00)
[2017-02-24] MEDS: Sodium Chloride 0.9% 1,000 ML IV SCH (02:15)
[2017-02-24 05:44] LABS: Anion Gap 12 mmol/L (10-20); BUN (Urea Nitrogen) 17 mg/dL (9.8-20.1); Calc. Creatinine Clearance 26 mL/min (70-130); Calcium 8.7 mg/dL (7.8-10.44); Carbon Dioxide 20 mmol/L (23-31); Chloride 112 mmol/L (98-107); Estimated GFR-MDRD 35; Glucose 208 mg/dL (83-110); Potassium 3.9 mmol/L (3.5-5.1); Sodium 140 mmol/L (136-145)
[2017-02-24 05:51] LABS: Hemoglobin 8.2 g/dL (12.0-16.0); Lymphocytes 13 % (21-51); MDiff Complete? YES; Mean Corpuscular HGB CONC 32.3 g/dL (32.0-36.0); Mean Corpuscular Hemoglobin 31.2 pg (27.0-31.0); Mean Corpuscular Volume 96.3 fl (81.0-99.0); Mean Platelet Volume 7.5 fL (7.4-10.4); Monocytes 3 % (0-10); Neutrophil 84 % (42-75); PLT Morphology Comment Appears Decreased; Platelet Count 102 thou/uL (130-400); Red Blood Cell (RBC) Count 2.64 mill/uL (4.20-5.40); White Blood Cell (WBC) Count 6.4 thou/uL (4.8-10.8)
[2017-02-24] MEDS: Levothyroxine Sodium 25 MCG TAB PO SCH (05:55)
[2017-02-24] MEDS: HumaLOG 300 UNITS/3 ML VIAL SC PRN ×2 (07:45→17:01)
[2017-02-24] MEDS: Aspirin 81 mg Enteric Coated Tablet PO SCH (07:47)
[2017-02-24] MEDS: Multivit, Therapeutic 1 TAB PO SCH (07:47)
[2017-02-24] MEDS: metFORMIN HCl XR 500 MG TAB PO SCH (07:48)
[2017-02-24] MEDS: Acetaminophen 325 MG TAB PO PRN (07:48)
[2017-02-24] MEDS: Losartan Potassium 25 MG TAB PO SCH (07:48)
[2017-02-24] MEDS: Floranex Packet PO SCH (07:49)
[2017-02-24] MEDS: Alogliptin Benzoate 25 MG TABLET PO SCH (20:05)
[2017-02-25] MEDS: Acetaminophen 325 MG TAB PO PRN (00:08)
[2017-02-25] MEDS: Levothyroxine Sodium 25 MCG TAB PO SCH (05:42)
[2017-02-25] MEDS: metFORMIN HCl XR 500 MG TAB PO SCH (08:08)
[2017-02-25] MEDS: Aspirin 81 mg Enteric Coated Tablet PO SCH (08:08)
[2017-02-25] MEDS: Floranex Packet PO SCH (08:08)
[2017-02-25] MEDS: FLUoxetine HCl 10 MG CAP PO SCH (08:09)
[2017-02-25] MEDS: Multivit, Therapeutic 1 TAB PO SCH (08:09)
[2017-02-25] MEDS: Losartan Potassium 25 MG TAB PO SCH (08:09)
[2017-02-25] MEDS: HumaLOG 300 UNITS/3 ML VIAL SC PRN (08:10)
[2017-02-25] MEDS ORDERED: Sodium Chloride 0.9% 1,000 ML BAG ONE (10:58)
[2017-02-25 11:45] VITALS: BP 135/62; TEMP 97.3
--- NOTE | 2017-02-26 07:19 | DIS ---
DATE OF ADMISSION: 02/21/2017 DATE OF DISCHARGE: 02/25/2017 DISCHARGING PHYSICIAN: Diane Kimball M.D. FINAL DIAGNOSES: 1. Urinary tract infection. 2. Generalized weakness. 3. Dehydration. 4. Iron deficiency anemia, chronic. 5. Diarrhea, resolved. 6. Diabetes type 2. 7. Confusion, resolved. DISCHARGE MEDICATIONS: 1. Levaquin 500 x5 days. 2. Metformin 1000 q.a.m. and 500 q.p.m. 3. Onglyza 5 daily. 4. Levothyroxine 25 mcg on an empty stomach in the morning. 5. Crestor 1 tab daily. 6. Losartan 250 daily. 7. Fluoxetine 10 takes every other day. 8. Aspirin 81 daily. 9. Multivitamin 1 capsule daily. 10. Humalog sliding scale. 11. Probiotic 1 capsule daily. 12. Vitamin D3 2000 units 1 tab daily. DISCHARGE INSTRUCTIONS: Follow up with primary care physician within 2 weeks. Repeat CBC as an outpatient. Follow up with oncologist for possible iron infusions in a month. Complete home antibiotics. Adequate p.o. hydration recommended. BRIEF HOSPITAL COURSE: Ms. Hagan is a 76-year-old female with medical history of type 2 diabetes, colon cancer in 2011, chronic iron deficiency anemia with iron infusions routinely, hypothyroidism, depression, hyperlipidemia, hypertension, patient presented to my office in 02/21 complaining of hematuria, fever, chills, vomiting, confusion and right lower quadrant abdominal pain. The patient was noted to be hypotensive in my office and she was noted to be really weak. Due to this, the decision was made to admit patient for further workup and possibly treatment with IV antibiotics and IV fluids. The patient was subsequently admitted to [facility] and started on IV Levaquin and IV fluids. During hospitalization, leukocytosis was noted and initial WBC was 20.9 on day of admission, by the was changed to 6.4. The patient progressively improved and IV antibiotics were discontinued after 3 days of IV fluids. The patient was noted to have anemia with hemoglobin of 8.2, but she states she has a history of chronic iron deficiency anemia, which she takes iron infusions for and she cannot take oral iron tablets. During hospitalization, she had episodes of diarrhea, which was controlled with Imodium. Stool for C. diff was negative. After 5 days of IV antibiotic, the patient's urine grew E. coli and Proteus and was susceptible to the antibiotic she has been on, which is IV Levaquin. The patient was anxious to go home and subsequently discharged home in a stable condition with family members to complete a 10-day dose of oral Levaquin. The patient was discharged home on 02/25/2017. Vitals upon discharge, temperature 97.3, pulse 82, respirations 20, blood pressure 135/62. MTDD
== END 2017-02-25 13:30 | disposition home or self-care (01) | DRG 690 ==
LOC: MADMS 16:24
PROVIDERS: ADMIT Family Medicine; ATTEND Family Medicine
DX: N39.0 Urinary tract infection, site not specified (principal); E11.65 Type 2 diabetes mellitus with hyperglycemia; B96.4 Proteus (mirabilis) (morganii) as the cause of diseases classified elsewhere; E86.0 Dehydration; D50.9 Iron deficiency anemia, unspecified; B96.20 Unspecified Escherichia coli [E. coli] as the cause of diseases classified elsewhere; R19.7 Diarrhea, unspecified; I10 Essential (primary) hypertension; Z85.038 Personal history of other malignant neoplasm of large intestine; F32.9 Major depressive disorder, single episode, unspecified; Z87.891 Personal history of nicotine dependence; Z79.84 Long term (current) use of oral hypoglycemic drugs; Z88.2 Allergy status to sulfonamides; Z88.8 Allergy status to other drugs, medicaments and biological substances; Z91.048 Other nonmedicinal substance allergy status; E03.9 Hypothyroidism, unspecified
CPT/HCPCS: 36415; 36416; 70450; 80048; 80053; 81001; 85025; 87077; 87086; 87186; 87324; 87449; A4216; J1956; J7050

== ENCOUNTER 2017-03-07 17:03 | Outpatient (CLI) | payer MEDICARE, BC ==
[2017-03-07 17:27] LABS: #Basophils 0.1 thou/uL (0.0-0.2); #Eosinphils 0.2 thou/uL (0.0-0.7); #Lymphocytes 2.8 thou/uL (1.20-3.40); #Monocytes 1.2 thou/uL (0.11-0.59); #Neutrophils 13.4 thou/uL (1.40-6.50); %Basophils 0.6 % (0.0-1.0); %Eosinophils 1.3 % (0.0-10.0); %Lymphocytes 15.8 % (21.0-51.0); %Monocytes 6.9 % (0.0-10.0); %Neutrophils 75.4 % (42.0-75.0); Hemoglobin 10.6 g/dL (12.0-16.0); Mean Corpuscular HGB CONC 33.2 g/dL (32.0-36.0); Mean Corpuscular Hemoglobin 32.5 pg (27.0-31.0); Mean Corpuscular Volume 97.7 fl (81.0-99.0); Mean Platelet Volume 6.9 fL (7.4-10.4); Platelet Count 231 thou/uL (130-400); Red Blood Cell (RBC) Count 3.26 mill/uL (4.20-5.40); White Blood Cell (WBC) Count 17.8 thou/uL (4.8-10.8)
[2017-03-07 17:40] LABS: ALT (SGPT) 12 U/L (8-55); AST (SGOT) 13 U/L (5-34); Albumin 3.7 g/dL (3.4-4.8); Alkaline Phosphatase 66 U/L (40-150); Anion Gap 18 mmol/L (10-20); BUN (Urea Nitrogen) 29 mg/dL (9.8-20.1); Bilirubin, Total 0.5 mg/dL (0.2-1.2); Calc. Creatinine Clearance 0 mL/min (70-130); Calcium 9.9 mg/dL (7.8-10.44); Carbon Dioxide 26 mmol/L (23-31); Chloride 98 mmol/L (98-107); Estimated GFR-MDRD 37; Globulin 3.3 g/dL (2.4-3.5); Glucose 123 mg/dL (83-110); Potassium 4.8 mmol/L (3.5-5.1); Sodium 137 mmol/L (136-145)
--- NOTE | 2017-03-07 18:17 | RAD ---
ABDOMEN ONE VIEW: 03/07/17 HISTORY: 76-year-old female with nausea and vomiting x2-3 weeks. No evidence of large or small bowel obstruction. Status post vertebroplasty changes involving L5 and T12. No overt bowel obstruction or free air. There is evidence of some postsurgical change overlyin g the right flank and some possible opacities in the region of the right kidney, conceivably these c ould represent some renal calculi. IMPRESSION: Possible right renal calculi. Status post vertebroplasty changes at L5 and T12. No bowel obstruction or other acute process. POS: [facility]
== END 2017-03-07 17:04 | disposition home or self-care (01) ==
LOC: MADLABBHPM 17:03
PROVIDERS: ATTEND Family Medicine
DX: R11.2 Nausea with vomiting, unspecified (principal); N30.00 Acute cystitis without hematuria
CPT/HCPCS: 36415; 74000; 80053; 85025; 87086; 87186

== ENCOUNTER 2021-01-06 10:40 | Outpatient (CLI) | payer MEDICARE, BC ==
[2021-01-06 11:20] LABS: ALT (SGPT) 15 U/L (8-55); AST (SGOT) 17 U/L (5-34); Albumin 4.2 g/dL (3.4-4.8); Alkaline Phosphatase 57 U/L (40-110); Anion Gap 17 mmol/L (10-20); BUN (Urea Nitrogen) 27 mg/dL (9.8-20.1); Bilirubin, Total 0.4 mg/dL (0.2-1.2); Calc. Creatinine Clearance 0 mL/min (70-130); Calcium 9.8 mg/dL (7.8-10.44); Carbon Dioxide 29 mmol/L (23-31); Cardiac Risk 3.2 (Less than 4.5); Chloride 101 mmol/L (98-107); Cholesterol 232 mg/dl (< 200 Desired); Glucose 156 mg/dL (83-110); HDL Cholesterol 73 mg/dL (>60 Neg Risk); LDL Cholesterol, Calculated 139 mg/dL; Potassium 4.6 mmol/L (3.5-5.1); Protein, Total 7.2 g/dL (5.8-8.1); Sodium 142 mmol/L (136-145); Triglycerides 98 mg/dL (Less than 150)
[2021-01-06 17:01] LABS: Hemoglobin A1c 5.4 % (4.0-6.0)
[2021-01-06 17:06] LABS: Creatinine, Urine 53.84 mg/dL (47-110); Microalbumin Urine 3.5 mg/dL (0.5-50.0)
== END 2021-01-06 10:41 | disposition home or self-care (01) ==
LOC: MADLAB 10:40
PROVIDERS: ATTEND Internal Medicine Endocrinology, Diabetes & Metabolism
DX: E03.9 Hypothyroidism, unspecified (principal); E11.65 Type 2 diabetes mellitus with hyperglycemia
CPT/HCPCS: 36415; 80053; 80061; 82043; 83036; 84439; 84443

== ENCOUNTER 2021-07-28 13:10 | Inpatient (IN) | payer MEDICARE, BC ==
[2021-07-28 15:42] LABS: SARS-CoV-2 NAA Rapid Test Not Detected (NotDetected)
[2021-07-28] MEDS ORDERED: FLU VACC QS2021-22(65YR UP)/PF 240 MCG/0.7 ML SYRINGE IM ONE (16:15)
[2021-07-28] MEDS ORDERED: Dextrose 5% in Water 1,000 ML IV PRN (17:30)
[2021-07-28] MEDS ORDERED: Dextrose 50% Abboject 50 ML SYRINGE IVP PRN (17:30)
[2021-07-28] MEDS ORDERED: HYDROcodone/Acetaminophen 5/325 mg Tablet PO PRN (17:31)
[2021-07-28] MEDS ORDERED: Polyethylene Glycol 3350 17 GM Packet PO PRN (17:55)
[2021-07-28] MEDS: HYDROcodone/Acetaminophen 5/325 mg Tablet PO PRN (18:25)
[2021-07-28] MEDS: Ferrous Sulfate 325 MG TAB PO SCH (21:03)
[2021-07-28] MEDS: hydrALAZINE 25 MG TAB PO SCH (21:03)
[2021-07-28] MEDS: Mirtazapine 15 MG TAB PO SCH (21:04)
[2021-07-28] MEDS: Calcium Carbonate 600 MG + Vit D TAB PO SCH ×2 (21:04→22:15)
[2021-07-28] MEDS: Acetaminophen 325 MG TAB PO PRN (21:08)
[2021-07-29 05:19] LABS: #Basophils 0.2 thou/uL (0.0-0.2); #Eosinphils 0.2 thou/uL (0.0-0.7); #Lymphocytes 2.4 thou/uL (1.20-3.40); #Monocytes 1.4 thou/uL (0.11-0.59); #Neutrophils 5.2 thou/uL (1.40-6.50); %Basophils 1.6 % (0.0-1.0); %Eosinophils 2.3 % (0.0-10.0); %Lymphocytes 25.8 % (21.0-51.0); %Monocytes 14.5 % (0.0-10.0); %Neutrophils 55.7 % (42.0-75.0); Hemoglobin 8.7 g/dL (12.0-16.0); Mean Corpuscular HGB CONC 32.4 g/dL (32.0-36.0); Mean Corpuscular Hemoglobin 33.2 pg (27.0-31.0); Mean Corpuscular Volume 102.3 fL (78.0-98.0); Mean Platelet Volume 5.5 fL (7.4-10.4); Platelet Count 307 thou/uL (130-400); RBC Distribution Width 16.6 % (11.5-14.5); Red Blood Cell (RBC) Count 2.64 mill/uL (4.20-5.40); White Blood Cell (WBC) Count 9.4 thou/uL (4.8-10.8)
[2021-07-29 05:39] LABS: ALT (SGPT) 11 U/L (8-55); AST (SGOT) 12 U/L (5-34); Albumin 3.1 g/dL (3.4-4.8); Alkaline Phosphatase 87 U/L (40-110); Anion Gap 15 mmol/L (10-20); BUN (Urea Nitrogen) 56 mg/dL (9.8-20.1); Bilirubin, Total 0.4 mg/dL (0.2-1.2); Calc. Creatinine Clearance 12 mL/min (70-130); Calcium 9.3 mg/dL (7.8-10.44); Carbon Dioxide 19 mmol/L (23-31); Chloride 111 mmol/L (98-107); Globulin 2.9 g/dL (2.4-3.5); Glucose 138 mg/dL (83-110); Potassium 4.4 mmol/L (3.5-5.1); Sodium 141 mmol/L (136-145)
[2021-07-29] MEDS: Amlodipine 5 MG TAB PO SCH (08:39)
[2021-07-29] MEDS: Aspirin 81 mg Enteric Coated Tablet PO SCH (08:39)
[2021-07-29] MEDS: hydrALAZINE 25 MG TAB PO SCH ×3 (08:39→20:20)
[2021-07-29] MEDS: Multivit, Therapeutic 1 TAB PO SCH (08:39)
[2021-07-29] MEDS: Enoxaparin Sodium 30 MG/0.3 ML SYRINGE SC SCH (08:39)
[2021-07-29] MEDS: Lantus 1000 UNITS/10 ML VIAL SC SCH (08:40)
[2021-07-29] MEDS: HumaLOG 300 UNITS/3 ML VIAL SC PRN ×2 (08:41→11:48)
[2021-07-29] MEDS: Calcium Carbonate 600 MG + Vit D TAB PO SCH (08:41)
[2021-07-29] MEDS: Ferrous Sulfate 325 MG TAB PO SCH (08:42)
[2021-07-29] MEDS: HYDROcodone/Acetaminophen 5/325 mg Tablet PO PRN ×2 (08:55→17:25)
[2021-07-29] MEDS: Acetaminophen 325 MG TAB PO PRN (15:18)
[2021-07-29] MEDS: Mirtazapine 15 MG TAB PO SCH (20:20)
[2021-07-30] MEDS: Amlodipine 5 MG TAB PO SCH (08:25)
[2021-07-30] MEDS: Multivit, Therapeutic 1 TAB PO SCH (08:25)
[2021-07-30] MEDS: hydrALAZINE 25 MG TAB PO SCH ×3 (08:25→20:13)
[2021-07-30] MEDS: Enoxaparin Sodium 30 MG/0.3 ML SYRINGE SC SCH (08:26)
[2021-07-30] MEDS: Lantus 1000 UNITS/10 ML VIAL SC SCH (08:26)
[2021-07-30] MEDS: Calcium Carbonate 600 MG + Vit D TAB PO SCH ×2 (08:38→22:20)
[2021-07-30] MEDS: Acetaminophen 325 MG TAB PO PRN (11:57)
[2021-07-30] MEDS: HumaLOG 300 UNITS/3 ML VIAL SC PRN (17:15)
[2021-07-30] MEDS: Mirtazapine 15 MG TAB PO SCH (20:13)
[2021-07-30] MEDS: Senokot S 8.6-50 MG TAB PO PRN (20:13)
[2021-07-30] MEDS ORDERED: Bisacodyl 10 MG SUPP PR PRN (21:08)
[2021-07-30] MEDS ORDERED: Fleet Enema 133 ML BOT PR PRN (21:09)
[2021-07-31] MEDS: HYDROcodone/Acetaminophen 5/325 mg Tablet PO PRN ×2 (00:41→08:33)
[2021-07-31] MEDS: Aspirin 81 mg Enteric Coated Tablet PO SCH (08:29)
[2021-07-31] MEDS: Amlodipine 5 MG TAB PO SCH (08:29)
[2021-07-31] MEDS: Enoxaparin Sodium 30 MG/0.3 ML SYRINGE SC SCH (08:29)
[2021-07-31] MEDS: hydrALAZINE 25 MG TAB PO SCH ×3 (08:30→20:22)
[2021-07-31] MEDS: Lantus 1000 UNITS/10 ML VIAL SC SCH (08:31)
[2021-07-31] MEDS: Multivit, Therapeutic 1 TAB PO SCH (08:31)
[2021-07-31] MEDS: Polyethylene Glycol 3350 17 GM Packet PO SCH (08:33)
[2021-07-31] MEDS: Calcium Carbonate 600 MG + Vit D TAB PO SCH ×2 (10:43→21:06)
[2021-07-31] MEDS: HumaLOG 300 UNITS/3 ML VIAL SC PRN (16:43)
[2021-07-31] MEDS: Mirtazapine 15 MG TAB PO SCH (20:22)
[2021-08-01] MEDS: Multivit, Therapeutic 1 TAB PO SCH (08:45)
[2021-08-01] MEDS: hydrALAZINE 25 MG TAB PO SCH ×3 (08:45→20:47)
[2021-08-01] MEDS: Enoxaparin Sodium 30 MG/0.3 ML SYRINGE SC SCH (08:45)
[2021-08-01] MEDS: Polyethylene Glycol 3350 17 GM Packet PO SCH (08:46)
[2021-08-01] MEDS: Lantus 1000 UNITS/10 ML VIAL SC SCH (08:46)
[2021-08-01] MEDS: Amlodipine 5 MG TAB PO SCH (08:46)
[2021-08-01] MEDS: Calcium Carbonate 600 MG + Vit D TAB PO SCH ×2 (11:09→22:10)
[2021-08-01] MEDS: Mirtazapine 15 MG TAB PO SCH (20:47)
[2021-08-02] MEDS: Amlodipine 5 MG TAB PO SCH (09:24)
[2021-08-02] MEDS: Aspirin 81 mg Enteric Coated Tablet PO SCH (09:24)
[2021-08-02] MEDS: Enoxaparin Sodium 30 MG/0.3 ML SYRINGE SC SCH (09:25)
[2021-08-02] MEDS: Multivit, Therapeutic 1 TAB PO SCH (09:25)
[2021-08-02] MEDS: hydrALAZINE 25 MG TAB PO SCH ×3 (09:25→21:00)
[2021-08-02] MEDS: Polyethylene Glycol 3350 17 GM Packet PO SCH (09:26)
[2021-08-02] MEDS: Calcium Carbonate 600 MG + Vit D TAB PO SCH ×2 (09:26→21:00)
[2021-08-02] MEDS: Lantus 1000 UNITS/10 ML VIAL SC SCH (09:26)
[2021-08-02] MEDS: Acetaminophen 325 MG TAB PO PRN (14:18)
[2021-08-02] MEDS: Mirtazapine 15 MG TAB PO SCH (21:00)
[2021-08-02] MEDS: HYDROcodone/Acetaminophen 5/325 mg Tablet PO PRN (23:03)
[2021-08-03 05:30] LABS: Anion Gap 15 mmol/L (10-20); BUN (Urea Nitrogen) 55 mg/dL (9.8-20.1); Calc. Creatinine Clearance 12 mL/min (70-130); Calcium 9.5 mg/dL (7.8-10.44); Carbon Dioxide 21 mmol/L (23-31); Chloride 110 mmol/L (98-107); Glucose 134 mg/dL (83-110); Potassium 4.2 mmol/L (3.5-5.1); Sodium 142 mmol/L (136-145)
[2021-08-03 05:44] LABS: #Basophils 0.1 thou/uL (0.0-0.2); #Eosinphils 0.4 thou/uL (0.0-0.7); #Lymphocytes 2.6 thou/uL (1.20-3.40); #Monocytes 1.1 thou/uL (0.11-0.59); %Basophils 1.6 % (0.0-1.0); %Eosinophils 5.2 % (0.0-10.0); %Lymphocytes 31.4 % (21.0-51.0); %Monocytes 13.6 % (0.0-10.0); %Neutrophils 48.1 % (42.0-75.0); Hemoglobin 8.9 g/dL (12.0-16.0); MDiff Complete? YES; Macrocytosis MODERATE=16-30 cells (100X) (0-5/hpf); Mean Corpuscular Hemoglobin 32.6 pg (27.0-31.0); Mean Corpuscular Volume 105.2 fL (78.0-98.0); Mean Platelet Volume 5.7 fL (7.4-10.4); Platelet Count 317 thou/uL (130-400); Polychromasia SLIGHT = 2-3 cells (100X) (0-2/hpf); RBC Distribution Width 17.1 % (11.5-14.5); Red Blood Cell (RBC) Count 2.73 mill/uL (4.20-5.40); White Blood Cell (WBC) Count 8.3 thou/uL (4.8-10.8)
[2021-08-03] MEDS: Amlodipine 5 MG TAB PO SCH (08:10)
[2021-08-03] MEDS: Multivit, Therapeutic 1 TAB PO SCH (08:10)
[2021-08-03] MEDS: hydrALAZINE 25 MG TAB PO SCH ×3 (08:11→20:17)
[2021-08-03] MEDS: Lantus 1000 UNITS/10 ML VIAL SC SCH (08:12)
[2021-08-03] MEDS: Enoxaparin Sodium 30 MG/0.3 ML SYRINGE SC SCH (08:13)
[2021-08-03] MEDS: Polyethylene Glycol 3350 17 GM Packet PO SCH (08:34)
[2021-08-03] MEDS: Calcium Carbonate 600 MG + Vit D TAB PO SCH ×2 (09:15→21:22)
[2021-08-03] MEDS: HYDROcodone/Acetaminophen 5/325 mg Tablet PO PRN ×2 (10:01→19:39)
[2021-08-03] MEDS: Mirtazapine 15 MG TAB PO SCH (20:16)
[2021-08-04] MEDS: Aspirin 81 mg Enteric Coated Tablet PO SCH (07:56)
[2021-08-04] MEDS: Polyethylene Glycol 3350 17 GM Packet PO SCH (07:59)
[2021-08-04] MEDS: Amlodipine 5 MG TAB PO SCH (07:59)
[2021-08-04] MEDS: Enoxaparin Sodium 30 MG/0.3 ML SYRINGE SC SCH (07:59)
[2021-08-04] MEDS: Lantus 1000 UNITS/10 ML VIAL SC SCH (07:59)
[2021-08-04] MEDS: Multivit, Therapeutic 1 TAB PO SCH (08:00)
[2021-08-04] MEDS: hydrALAZINE 25 MG TAB PO SCH ×3 (08:00→20:05)
[2021-08-04] MEDS: Calcium Carbonate 600 MG + Vit D TAB PO SCH ×2 (09:32→21:42)
[2021-08-04] MEDS: HYDROcodone/Acetaminophen 5/325 mg Tablet PO PRN ×2 (09:32→19:14)
[2021-08-04 17:22] LABS: SARS-CoV-2 PCR by NAA Not Detected (NotDetected)
[2021-08-04] MEDS: Mirtazapine 15 MG TAB PO SCH (20:06)
[2021-08-04] MEDS ORDERED: HYDROcodone/Acetaminophen 5/325 mg Tablet PO SCH (22:00)
[2021-08-05] MEDS: Polyethylene Glycol 3350 17 GM Packet PO SCH (08:37)
[2021-08-05] MEDS: Multivit, Therapeutic 1 TAB PO SCH (08:39)
[2021-08-05] MEDS: Amlodipine 5 MG TAB PO SCH (08:39)
[2021-08-05] MEDS: hydrALAZINE 25 MG TAB PO SCH ×3 (08:39→20:16)
[2021-08-05] MEDS: Enoxaparin Sodium 30 MG/0.3 ML SYRINGE SC SCH (08:40)
[2021-08-05] MEDS: Lantus 1000 UNITS/10 ML VIAL SC SCH (08:45)
[2021-08-05] MEDS: Calcium Carbonate 600 MG + Vit D TAB PO SCH ×2 (10:07→21:01)
[2021-08-05] MEDS: Mirtazapine 15 MG TAB PO SCH (20:16)
[2021-08-05] MEDS: Senokot S 8.6-50 MG TAB PO PRN (20:53)
[2021-08-05] MEDS: HYDROcodone/Acetaminophen 5/325 mg Tablet PO PRN (20:59)
[2021-08-06] MEDS: Aspirin 81 mg Enteric Coated Tablet PO SCH (08:03)
[2021-08-06] MEDS: Amlodipine 5 MG TAB PO SCH (08:03)
[2021-08-06] MEDS: Multivit, Therapeutic 1 TAB PO SCH (08:03)
[2021-08-06] MEDS: Enoxaparin Sodium 30 MG/0.3 ML SYRINGE SC SCH (08:04)
[2021-08-06] MEDS: Polyethylene Glycol 3350 17 GM Packet PO SCH (08:04)
[2021-08-06] MEDS: hydrALAZINE 25 MG TAB PO SCH ×3 (08:04→20:58)
[2021-08-06] MEDS: Lantus 1000 UNITS/10 ML VIAL SC SCH (08:05)
[2021-08-06] MEDS: Calcium Carbonate 600 MG + Vit D TAB PO SCH ×2 (08:58→21:00)
[2021-08-06] MEDS: HYDROcodone/Acetaminophen 5/325 mg Tablet PO PRN ×2 (15:16→22:44)
[2021-08-06] MEDS: Mirtazapine 15 MG TAB PO SCH (20:58)
[2021-08-06] MEDS: Senokot S 8.6-50 MG TAB PO PRN (21:08)
[2021-08-07] MEDS: Enoxaparin Sodium 30 MG/0.3 ML SYRINGE SC SCH (08:23)
[2021-08-07] MEDS: Polyethylene Glycol 3350 17 GM Packet PO SCH (08:23)
[2021-08-07] MEDS: Multivit, Therapeutic 1 TAB PO SCH (08:24)
[2021-08-07] MEDS: Amlodipine 5 MG TAB PO SCH (08:24)
[2021-08-07] MEDS: hydrALAZINE 25 MG TAB PO SCH ×3 (08:24→20:59)
[2021-08-07] MEDS: Lantus 1000 UNITS/10 ML VIAL SC SCH (08:25)
[2021-08-07] MEDS: Calcium Carbonate 600 MG + Vit D TAB PO SCH ×2 (08:29→20:59)
[2021-08-07] MEDS: HYDROcodone/Acetaminophen 5/325 mg Tablet PO PRN ×2 (10:16→19:18)
[2021-08-07] MEDS: Mirtazapine 15 MG TAB PO SCH (20:59)
[2021-08-08] MEDS: Lantus 1000 UNITS/10 ML VIAL SC SCH (08:16)
[2021-08-08] MEDS: Enoxaparin Sodium 30 MG/0.3 ML SYRINGE SC SCH (08:17)
[2021-08-08] MEDS: hydrALAZINE 25 MG TAB PO SCH ×3 (08:17→20:24)
[2021-08-08] MEDS: Multivit, Therapeutic 1 TAB PO SCH (08:17)
[2021-08-08] MEDS: Aspirin 81 mg Enteric Coated Tablet PO SCH (08:17)
[2021-08-08] MEDS: Amlodipine 5 MG TAB PO SCH (08:18)
[2021-08-08] MEDS: Polyethylene Glycol 3350 17 GM Packet PO SCH (08:18)
[2021-08-08] MEDS: Calcium Carbonate 600 MG + Vit D TAB PO SCH ×2 (09:26→22:27)
[2021-08-08] MEDS: Mirtazapine 15 MG TAB PO SCH (20:25)
[2021-08-08] MEDS: HYDROcodone/Acetaminophen 5/325 mg Tablet PO PRN (22:24)
[2021-08-09] MEDS: HYDROcodone/Acetaminophen 5/325 mg Tablet PO PRN ×2 (07:33→23:25)
[2021-08-09] MEDS: Polyethylene Glycol 3350 17 GM Packet PO SCH (08:24)
[2021-08-09] MEDS: Enoxaparin Sodium 30 MG/0.3 ML SYRINGE SC SCH (08:24)
[2021-08-09] MEDS: Lantus 1000 UNITS/10 ML VIAL SC SCH (08:24)
[2021-08-09] MEDS: Amlodipine 5 MG TAB PO SCH (08:25)
[2021-08-09] MEDS: Multivit, Therapeutic 1 TAB PO SCH (08:25)
[2021-08-09] MEDS: hydrALAZINE 25 MG TAB PO SCH ×3 (08:25→21:01)
[2021-08-09] MEDS: Calcium Carbonate 600 MG + Vit D TAB PO SCH ×2 (09:53→21:02)
[2021-08-09] MEDS: Mirtazapine 15 MG TAB PO SCH (21:02)
[2021-08-10 05:18] LABS: #Basophils 0.1 thou/uL (0.0-0.2); #Eosinphils 0.3 thou/uL (0.0-0.7); #Lymphocytes 2.8 thou/uL (1.20-3.40); #Monocytes 1.1 thou/uL (0.11-0.59); #Neutrophils 3.5 thou/uL (1.40-6.50); %Basophils 1.9 % (0.0-1.0); %Eosinophils 3.8 % (0.0-10.0); %Lymphocytes 35.2 % (21.0-51.0); %Monocytes 14.3 % (0.0-10.0); %Neutrophils 44.8 % (42.0-75.0); Hemoglobin 8.5 g/dL (12.0-16.0); Mean Corpuscular HGB CONC 31.1 g/dL (32.0-36.0); Mean Corpuscular Hemoglobin 32.6 pg (27.0-31.0); Mean Corpuscular Volume 104.9 fL (78.0-98.0); Mean Platelet Volume 5.4 fL (7.4-10.4); Platelet Count 218 thou/uL (130-400); Red Blood Cell (RBC) Count 2.63 mill/uL (4.20-5.40); White Blood Cell (WBC) Count 7.9 thou/uL (4.8-10.8)
[2021-08-10 05:37] LABS: Anion Gap 14 mmol/L (10-20); BUN (Urea Nitrogen) 67 mg/dL (9.8-20.1); Calc. Creatinine Clearance 10 mL/min (70-130); Calcium 9.9 mg/dL (7.8-10.44); Carbon Dioxide 24 mmol/L (23-31); Chloride 107 mmol/L (98-107); Glucose 65 mg/dL (83-110); Potassium 4.1 mmol/L (3.5-5.1); Sodium 141 mmol/L (136-145)
[2021-08-10] MEDS: HYDROcodone/Acetaminophen 5/325 mg Tablet PO PRN ×2 (08:07→21:04)
[2021-08-10] MEDS: Amlodipine 5 MG TAB PO SCH (08:07)
[2021-08-10] MEDS: Aspirin 81 mg Enteric Coated Tablet PO SCH (08:07)
[2021-08-10] MEDS: Polyethylene Glycol 3350 17 GM Packet PO SCH (08:07)
[2021-08-10] MEDS: Multivit, Therapeutic 1 TAB PO SCH (08:08)
[2021-08-10] MEDS: hydrALAZINE 25 MG TAB PO SCH ×4 (08:08→20:28)
[2021-08-10] MEDS: Enoxaparin Sodium 30 MG/0.3 ML SYRINGE SC SCH (08:10)
[2021-08-10] MEDS: Lantus 1000 UNITS/10 ML VIAL SC SCH (08:34)
[2021-08-10] MEDS: Calcium Carbonate 600 MG + Vit D TAB PO SCH ×2 (10:00→21:05)
[2021-08-10] MEDS: Sodium Chloride 0.9% 1,000 ML IV SCH (10:00)
[2021-08-10] MEDS: Mirtazapine 15 MG TAB PO SCH (20:29)
[2021-08-11] MEDS: Sodium Chloride 0.9% 1,000 ML IV SCH (04:21)
[2021-08-11 05:38] LABS: Anion Gap 14 mmol/L (10-20); BUN (Urea Nitrogen) 62 mg/dL (9.8-20.1); Calc. Creatinine Clearance 10 mL/min (70-130); Calcium 9.5 mg/dL (7.8-10.44); Carbon Dioxide 22 mmol/L (23-31); Chloride 111 mmol/L (98-107); Glucose 69 mg/dL (83-110); Potassium 3.9 mmol/L (3.5-5.1); Sodium 143 mmol/L (136-145)
[2021-08-11] MEDS: Amlodipine 5 MG TAB PO SCH (08:01)
[2021-08-11] MEDS: Enoxaparin Sodium 30 MG/0.3 ML SYRINGE SC SCH (08:02)
[2021-08-11] MEDS: Polyethylene Glycol 3350 17 GM Packet PO SCH (08:02)
[2021-08-11] MEDS: hydrALAZINE 25 MG TAB PO SCH ×3 (08:02→20:00)
[2021-08-11] MEDS: Multivit, Therapeutic 1 TAB PO SCH (08:02)
[2021-08-11] MEDS: Lantus 1000 UNITS/10 ML VIAL SC SCH (08:03)
[2021-08-11] MEDS: Calcium Carbonate 600 MG + Vit D TAB PO SCH ×2 (10:13→21:48)
[2021-08-11 14:31] LABS: SARS-CoV-2 PCR by NAA Not Detected (NotDetected)
[2021-08-11] MEDS: Mirtazapine 15 MG TAB PO SCH (20:00)
[2021-08-11] MEDS: Acetaminophen 325 MG TAB PO PRN (22:58)
[2021-08-12] MEDS: Sodium Chloride 0.9% 1,000 ML IV SCH ×2 (00:52→21:01)
[2021-08-12 07:22] LABS: Anion Gap 14 mmol/L (10-20); BUN (Urea Nitrogen) 51 mg/dL (9.8-20.1); Calc. Creatinine Clearance 11 mL/min (70-130); Calcium 9.1 mg/dL (7.8-10.44); Carbon Dioxide 19 mmol/L (23-31); Chloride 111 mmol/L (98-107); Glucose 88 mg/dL (83-110); Sodium 140 mmol/L (136-145)
[2021-08-12] MEDS: Enoxaparin Sodium 30 MG/0.3 ML SYRINGE SC SCH (08:25)
[2021-08-12] MEDS: Amlodipine 5 MG TAB PO SCH (08:25)
[2021-08-12] MEDS: hydrALAZINE 25 MG TAB PO SCH ×3 (08:26→20:51)
[2021-08-12] MEDS: Aspirin 81 mg Enteric Coated Tablet PO SCH (08:26)
[2021-08-12] MEDS: Multivit, Therapeutic 1 TAB PO SCH (08:26)
[2021-08-12] MEDS: Lantus 1000 UNITS/10 ML VIAL SC SCH (08:26)
[2021-08-12] MEDS: Polyethylene Glycol 3350 17 GM Packet PO SCH (08:27)
[2021-08-12] MEDS: Calcium Carbonate 600 MG + Vit D TAB PO SCH ×2 (10:16→20:52)
[2021-08-12] MEDS: Acetaminophen 325 MG TAB PO PRN (20:52)
[2021-08-12] MEDS: Mirtazapine 15 MG TAB PO SCH (21:03)
[2021-08-13 05:43] LABS: Anion Gap 15 mmol/L (10-20); BUN (Urea Nitrogen) 47 mg/dL (9.8-20.1); Calc. Creatinine Clearance 11 mL/min (70-130); Calcium 9.3 mg/dL (7.8-10.44); Carbon Dioxide 18 mmol/L (23-31); Chloride 113 mmol/L (98-107); Glucose 90 mg/dL (83-110); Potassium 3.9 mmol/L (3.5-5.1); Sodium 142 mmol/L (136-145)
[2021-08-13] MEDS: hydrALAZINE 25 MG TAB PO SCH ×3 (09:16→20:02)
[2021-08-13] MEDS: Multivit, Therapeutic 1 TAB PO SCH (09:16)
[2021-08-13] MEDS: Polyethylene Glycol 3350 17 GM Packet PO SCH (09:17)
[2021-08-13] MEDS: Enoxaparin Sodium 30 MG/0.3 ML SYRINGE SC SCH (09:17)
[2021-08-13] MEDS: Lantus 1000 UNITS/10 ML VIAL SC SCH (09:17)
[2021-08-13] MEDS: Amlodipine 5 MG TAB PO SCH (09:17)
[2021-08-13] MEDS: Calcium Carbonate 600 MG + Vit D TAB PO SCH ×2 (09:37→22:10)
[2021-08-13] MEDS: Mirtazapine 15 MG TAB PO SCH (20:03)
[2021-08-13] MEDS: Acetaminophen 325 MG TAB PO PRN (22:21)
[2021-08-14] MEDS: Aspirin 81 mg Enteric Coated Tablet PO SCH (09:47)
[2021-08-14] MEDS: Calcium Carbonate 600 MG + Vit D TAB PO SCH ×2 (09:47→20:20)
[2021-08-14] MEDS: hydrALAZINE 25 MG TAB PO SCH ×3 (09:48→20:19)
[2021-08-14] MEDS: Amlodipine 5 MG TAB PO SCH (09:48)
[2021-08-14] MEDS: Enoxaparin Sodium 30 MG/0.3 ML SYRINGE SC SCH (09:48)
[2021-08-14] MEDS: Polyethylene Glycol 3350 17 GM Packet PO SCH (09:49)
[2021-08-14] MEDS: Multivit, Therapeutic 1 TAB PO SCH (09:49)
[2021-08-14] MEDS: Lantus 1000 UNITS/10 ML VIAL SC SCH (09:49)
[2021-08-14] MEDS: Mirtazapine 15 MG TAB PO SCH (20:18)
[2021-08-14] MEDS: Acetaminophen 325 MG TAB PO PRN (20:21)
[2021-08-15] MEDS: Polyethylene Glycol 3350 17 GM Packet PO SCH (08:07)
[2021-08-15] MEDS: Enoxaparin Sodium 30 MG/0.3 ML SYRINGE SC SCH (08:07)
[2021-08-15] MEDS: Multivit, Therapeutic 1 TAB PO SCH (08:07)
[2021-08-15] MEDS: Amlodipine 5 MG TAB PO SCH (08:07)
[2021-08-15] MEDS: hydrALAZINE 25 MG TAB PO SCH ×3 (08:07→19:59)
[2021-08-15] MEDS: Lantus 1000 UNITS/10 ML VIAL SC SCH (08:08)
[2021-08-15] MEDS: Calcium Carbonate 600 MG + Vit D TAB PO SCH ×2 (09:52→20:44)
[2021-08-15] MEDS: Acetaminophen 325 MG TAB PO PRN (19:58)
[2021-08-15] MEDS: Mirtazapine 15 MG TAB PO SCH (20:00)
[2021-08-16] MEDS: Amlodipine 5 MG TAB PO SCH (08:33)
[2021-08-16] MEDS: Enoxaparin Sodium 30 MG/0.3 ML SYRINGE SC SCH (08:33)
[2021-08-16] MEDS: Aspirin 81 mg Enteric Coated Tablet PO SCH (08:33)
[2021-08-16] MEDS: hydrALAZINE 25 MG TAB PO SCH ×3 (08:34→20:19)
[2021-08-16] MEDS: Multivit, Therapeutic 1 TAB PO SCH (08:34)
[2021-08-16] MEDS: Lantus 1000 UNITS/10 ML VIAL SC SCH (08:34)
[2021-08-16] MEDS: Polyethylene Glycol 3350 17 GM Packet PO SCH (08:35)
[2021-08-16] MEDS: Calcium Carbonate 600 MG + Vit D TAB PO SCH ×2 (10:57→20:20)
[2021-08-16] MEDS: Acetaminophen 325 MG TAB PO PRN ×2 (15:38→20:20)
[2021-08-16] MEDS: Mirtazapine 15 MG TAB PO SCH (20:21)
[2021-08-17 05:42] LABS: #Basophils 0.1 thou/uL (0.0-0.2); #Eosinphils 0.3 thou/uL (0.0-0.7); #Lymphocytes 4.5 thou/uL (1.20-3.40); #Monocytes 1.2 thou/uL (0.11-0.59); #Neutrophils 3.2 thou/uL (1.40-6.50); %Basophils 1.5 % (0.0-1.0); %Eosinophils 3.7 % (0.0-10.0); %Lymphocytes 47.9 % (21.0-51.0); %Neutrophils 33.8 % (42.0-75.0); Hemoglobin 8.8 g/dL (12.0-16.0); Hypochromia SLIGHT = 6-15 cells (100X) (0-5/hpf); MDiff Complete? YES; Macrocytosis SLIGHT = 6-15 cells (100X) (0-5/hpf); Mean Corpuscular HGB CONC 31.4 g/dL (32.0-36.0); Mean Corpuscular Hemoglobin 32.7 pg (27.0-31.0); Mean Corpuscular Volume 104.1 fL (78.0-98.0); Mean Platelet Volume 5.8 fL (7.4-10.4); Platelet Count 243 thou/uL (130-400); RBC Distribution Width 15.2 % (11.5-14.5); Red Blood Cell (RBC) Count 2.69 mill/uL (4.20-5.40); White Blood Cell (WBC) Count 9.3 thou/uL (4.8-10.8)
[2021-08-17 06:09] LABS: Anion Gap 20 mmol/L (10-20); BUN (Urea Nitrogen) 50 mg/dL (9.8-20.1); Calc. Creatinine Clearance 10 mL/min (70-130); Carbon Dioxide 19 mmol/L (23-31); Chloride 108 mmol/L (98-107); Glucose 99 mg/dL (83-110); Potassium 3.8 mmol/L (3.5-5.1); Sodium 143 mmol/L (136-145)
[2021-08-17] MEDS: Amlodipine 5 MG TAB PO SCH (08:08)
[2021-08-17] MEDS: Enoxaparin Sodium 30 MG/0.3 ML SYRINGE SC SCH (08:09)
[2021-08-17] MEDS: hydrALAZINE 25 MG TAB PO SCH ×3 (08:09→19:59)
[2021-08-17] MEDS: Multivit, Therapeutic 1 TAB PO SCH (08:09)
[2021-08-17] MEDS: Polyethylene Glycol 3350 17 GM Packet PO SCH (08:10)
[2021-08-17] MEDS: Lantus 1000 UNITS/10 ML VIAL SC SCH (08:10)
[2021-08-17] MEDS: Calcium Carbonate 600 MG + Vit D TAB PO SCH ×2 (09:11→20:00)
[2021-08-17 10:10] VITALS: BMI 19.1
[2021-08-17] MEDS: Mirtazapine 15 MG TAB PO SCH (19:59)
[2021-08-17] MEDS: Acetaminophen 325 MG TAB PO PRN (20:03)
[2021-08-18] MEDS: Lantus 1000 UNITS/10 ML VIAL SC SCH (08:22)
[2021-08-18] MEDS: Multivit, Therapeutic 1 TAB PO SCH (08:23)
[2021-08-18] MEDS: hydrALAZINE 25 MG TAB PO SCH ×2 (08:23→16:18)
[2021-08-18] MEDS: Amlodipine 5 MG TAB PO SCH (08:23)
[2021-08-18] MEDS: Enoxaparin Sodium 30 MG/0.3 ML SYRINGE SC SCH (08:24)
[2021-08-18] MEDS: Aspirin 81 mg Enteric Coated Tablet PO SCH (08:24)
[2021-08-18] MEDS: Polyethylene Glycol 3350 17 GM Packet PO SCH (08:29)
[2021-08-18] MEDS: Calcium Carbonate 600 MG + Vit D TAB PO SCH ×2 (09:13→21:12)
[2021-08-18 16:45] LABS: SARS-CoV-2 PCR by NAA Not Detected (NotDetected)
[2021-08-18] MEDS: Mirtazapine 15 MG TAB PO SCH (21:12)
[2021-08-19] MEDS: Acetaminophen 325 MG TAB PO PRN ×3 (00:43→16:09)
[2021-08-19] MEDS: Lantus 1000 UNITS/10 ML VIAL SC SCH (08:09)
[2021-08-19] MEDS: Enoxaparin Sodium 30 MG/0.3 ML SYRINGE SC SCH (08:11)
[2021-08-19] MEDS: Amlodipine 5 MG TAB PO SCH (08:13)
[2021-08-19] MEDS: Multivit, Therapeutic 1 TAB PO SCH (08:13)
[2021-08-19] MEDS: Polyethylene Glycol 3350 17 GM Packet PO SCH (08:14)
[2021-08-19] MEDS: Calcium Carbonate 600 MG + Vit D TAB PO SCH ×2 (10:02→21:11)
[2021-08-19] MEDS: HYDROcodone/Acetaminophen 5/325 mg Tablet PO PRN (20:12)
[2021-08-19] MEDS: Mirtazapine 15 MG TAB PO SCH (20:13)
[2021-08-20] MEDS: Acetaminophen 325 MG TAB PO PRN ×2 (07:14→17:49)
[2021-08-20] MEDS: Multivit, Therapeutic 1 TAB PO SCH (09:02)
[2021-08-20] MEDS: Enoxaparin Sodium 30 MG/0.3 ML SYRINGE SC SCH (09:02)
[2021-08-20] MEDS: Amlodipine 5 MG TAB PO SCH (09:02)
[2021-08-20] MEDS: Aspirin 81 mg Enteric Coated Tablet PO SCH (09:02)
[2021-08-20] MEDS: Calcium Carbonate 600 MG + Vit D TAB PO SCH ×2 (09:02→21:13)
[2021-08-20] MEDS: Polyethylene Glycol 3350 17 GM Packet PO SCH (09:03)
[2021-08-20] MEDS: Lantus 1000 UNITS/10 ML VIAL SC SCH (09:05)
[2021-08-20] MEDS: HYDROcodone/Acetaminophen 5/325 mg Tablet PO PRN (11:25)
[2021-08-20] MEDS: AMOXicillin 250 MG CAP PO SCH (20:09)
[2021-08-20] MEDS: Mirtazapine 15 MG TAB PO SCH (20:11)
[2021-08-21 07:09] VITALS: BP 150/74; TEMP 97.9
[2021-08-21] MEDS: Acetaminophen 325 MG TAB PO PRN ×2 (07:34→12:42)
[2021-08-21] MEDS: Multivit, Therapeutic 1 TAB PO SCH (09:00)
[2021-08-21] MEDS: Amlodipine 5 MG TAB PO SCH (09:00)
[2021-08-21] MEDS: Calcium Carbonate 600 MG + Vit D TAB PO SCH (09:00)
[2021-08-21] MEDS: AMOXicillin 250 MG CAP PO SCH ×2 (09:00→16:06)
[2021-08-21] MEDS: Enoxaparin Sodium 30 MG/0.3 ML SYRINGE SC SCH (09:01)
[2021-08-21] MEDS: Lantus 1000 UNITS/10 ML VIAL SC SCH (09:01)
[2021-08-21] MEDS: Polyethylene Glycol 3350 17 GM Packet PO SCH (09:06)
== END 2021-08-21 17:40 | disposition home health service (06) | DRG 560 ==
LOC: UNDOADMIN 13:10 → MADMS 13:10
PROVIDERS: ADMIT Family Medicine; ATTEND Family Medicine
DX: S72.141D Displaced intertrochanteric fracture of right femur, subsequent encounter for closed fracture with routine healing (principal); N18.4 Chronic kidney disease, stage 4 (severe); Z20.822 Contact with and (suspected) exposure to COVID-19; E11.22 Type 2 diabetes mellitus with diabetic chronic kidney disease; K59.00 Constipation, unspecified; E78.5 Hyperlipidemia, unspecified; Z60.2 Problems related to living alone; K04.7 Periapical abscess without sinus; I12.9 Hypertensive chronic kidney disease with stage 1 through stage 4 chronic kidney disease, or unspecified chronic kidney disease; D63.1 Anemia in chronic kidney disease; Z85.038 Personal history of other malignant neoplasm of large intestine; W18.30XD Fall on same level, unspecified, subsequent encounter; Z90.49 Acquired absence of other specified parts of digestive tract; Z92.21 Personal history of antineoplastic chemotherapy; Z87.442 Personal history of urinary calculi; Z79.891 Long term (current) use of opiate analgesic; Z79.82 Long term (current) use of aspirin; Z79.4 Long term (current) use of insulin; Z79.899 Other long term (current) drug therapy; Z91.048 Other nonmedicinal substance allergy status; Z91.041 Radiographic dye allergy status; Z88.8 Allergy status to other drugs, medicaments and biological substances; Z88.1 Allergy status to other antibiotic agents
CPT/HCPCS: 36415; 36416; 80048; 80053; 83036; 84443; 85025; J1650; J1815; J7050; U0002; U0003; U0005

== ENCOUNTER 2021-09-18 17:55 | Emergency (ER) | payer MEDICARE, BC ==
[2021-09-18] MEDS ORDERED: Acetaminophen 500 MG TAB ONE (18:50)
[2021-09-18] MEDS ORDERED: Sodium Chloride 0.9% 500 ML ONE (18:50)
[2021-09-18 19:42] LABS: ALT (SGPT) 18 U/L (8-55); AST (SGOT) 16 U/L (5-34); Albumin 3.8 g/dL (3.4-4.8); Alkaline Phosphatase 67 U/L (40-110); Anion Gap 18 mmol/L (10-20); BUN (Urea Nitrogen) 33 mg/dL (9.8-20.1); Bilirubin, Total 0.4 mg/dL (0.2-1.2); Calc. Creatinine Clearance 0 mL/min (70-130); Calcium 9.7 mg/dL (7.8-10.44); Carbon Dioxide 24 mmol/L (23-31); Chloride 100 mmol/L (98-107); Globulin 3.7 g/dL (2.4-3.5); Glucose 170 mg/dL (83-110); Potassium 4.1 mmol/L (3.5-5.1); Protein, Total 7.5 g/dL (5.8-8.1); Sodium 138 mmol/L (136-145)
[2021-09-18 19:47] LABS: #Basophils 0.1 thou/uL (0.0-0.2); #Lymphocytes 0.7 thou/uL (1.20-3.40); #Monocytes 0.7 thou/uL (0.11-0.59); #Neutrophils 7.1 thou/uL (1.40-6.50); %Basophils 0.8 % (0.0-1.0); %Eosinophils 0.1 % (0.0-10.0); %Lymphocytes 7.7 % (21.0-51.0); %Neutrophils 83.4 % (42.0-75.0); Hemoglobin 11.9 g/dL (12.0-16.0); MDiff Complete? YES; Macrocytosis SLIGHT = 6-15 cells (100X) (0-5/hpf); Mean Corpuscular Hemoglobin 33.9 pg (27.0-31.0); Mean Platelet Volume 5.9 fL (7.4-10.4); Platelet Count 187 thou/uL (130-400); Platelet Morphology Comment Appears Adequate; RBC Distribution Width 15.4 % (11.5-14.5); Red Blood Cell (RBC) Count 3.51 mill/uL (4.20-5.40); White Blood Cell (WBC) Count 8.5 thou/uL (4.8-10.8)
== END 2021-09-18 20:36 | disposition home or self-care (01) ==
LOC: MADERS 17:55
DX: J20.8 Acute bronchitis due to other specified organisms (principal); E86.0 Dehydration; E11.9 Type 2 diabetes mellitus without complications; E03.9 Hypothyroidism, unspecified; I10 Essential (primary) hypertension; Z79.82 Long term (current) use of aspirin; Z79.899 Other long term (current) drug therapy
CPT/HCPCS: 36415; 71250; 80053; 83605; 85025; J7030

== ENCOUNTER 2021-09-24 13:52 | Emergency (ER) | payer MEDICARE, BC ==
[2021-09-24 16:18] LABS: ALT (SGPT) 11 U/L (8-55); AST (SGOT) 26 U/L (5-34); Albumin 3.2 g/dL (3.4-4.8); Alkaline Phosphatase 61 U/L (40-110); Anion Gap 17 mmol/L (10-20); BUN (Urea Nitrogen) 42 mg/dL (9.8-20.1); Bilirubin, Total 0.3 mg/dL (0.2-1.2); Calc. Creatinine Clearance 0 mL/min (70-130); Carbon Dioxide 25 mmol/L (23-31); Chloride 104 mmol/L (98-107); Globulin 3.4 g/dL (2.4-3.5); Glucose 78 mg/dL (83-110); Potassium 4.5 mmol/L (3.5-5.1); Protein, Total 6.6 g/dL (5.8-8.1); Sodium 141 mmol/L (136-145)
[2021-09-24 16:19] LABS: Anisocytosis SLIGHT = 6-15 cells (100X) (0-5/hpf); Band 4 % (5-11); Hemoglobin 11.8 g/dL (12.0-16.0); Hypochromia SLIGHT = 6-15 cells (100X) (0-5/hpf); Lymphocytes 41 % (21-51); MDiff Complete? YES; Macrocytosis SLIGHT = 6-15 cells (100X) (0-5/hpf); Mean Corpuscular HGB CONC 30.8 g/dL (32.0-36.0); Mean Corpuscular Hemoglobin 32.8 pg (27.0-31.0); Mean Corpuscular Volume 106.4 fL (78.0-98.0); Mean Platelet Volume 6.8 fL (7.4-10.4); Monocytes 11 % (0-10); Neutrophil 40 % (42-75); Platelet Count 137 thou/uL (130-400); Platelet Morphology Comment Appears Adequate; RBC Distribution Width 15.6 % (11.5-14.5); Reactive Lymphocytes 4 % (0-10); White Blood Cell (WBC) Count 4.5 thou/uL (4.8-10.8)
[2021-09-24] MEDS ORDERED: Dextrose 50% Abboject 50 ML SYRINGE ONE (16:48)
== END 2021-09-24 18:00 | disposition home or self-care (01) ==
LOC: MADERS 13:52
DX: U07.1 COVID-19 (principal); R53.1 Weakness; E11.9 Type 2 diabetes mellitus without complications; E03.9 Hypothyroidism, unspecified; I10 Essential (primary) hypertension; Z79.82 Long term (current) use of aspirin; Z79.899 Other long term (current) drug therapy
CPT/HCPCS: 36415; 80053; 85025; 87804; 96374

== ENCOUNTER 2021-10-12 16:30 | Inpatient (IN) | payer MEDICARE, BC ==
[2021-10-12 16:52] VITALS: BMI 18.1
[2021-10-12] MEDS: Ferrous Sulfate 325 MG TAB PO SCH (21:34)
[2021-10-13 05:40] LABS: #Basophils 0.1 thou/uL (0.0-0.2); #Lymphocytes 1.8 thou/uL (1.20-3.40); #Monocytes 1.1 thou/uL (0.11-0.59); #Neutrophils 4.7 thou/uL (1.40-6.50); %Basophils 1.3 % (0.0-1.0); %Eosinophils 0.6 % (0.0-10.0); %Lymphocytes 22.9 % (21.0-51.0); %Monocytes 14.2 % (0.0-10.0); Hemoglobin 9.1 g/dL (12.0-16.0); Mean Corpuscular HGB CONC 32.6 g/dL (32.0-36.0); Mean Corpuscular Hemoglobin 33.4 pg (27.0-31.0); Mean Corpuscular Volume 102.4 fL (78.0-98.0); Mean Platelet Volume 6.4 fL (7.4-10.4); Platelet Count 175 thou/uL (130-400); RBC Distribution Width 14.7 % (11.5-14.5); Red Blood Cell (RBC) Count 2.73 mill/uL (4.20-5.40); White Blood Cell (WBC) Count 7.7 thou/uL (4.8-10.8)
[2021-10-13 06:05] LABS: ALT (SGPT) Less than 7 U/L (8-55); AST (SGOT) 9 U/L (5-34); Albumin 2.9 g/dL (3.4-4.8); Alkaline Phosphatase 62 U/L (40-110); Anion Gap 14 mmol/L (10-20); BUN (Urea Nitrogen) 47 mg/dL (9.8-20.1); Bilirubin, Total 0.3 mg/dL (0.2-1.2); Calc. Creatinine Clearance 10 mL/min (70-130); Calcium 10.6 mg/dL (7.8-10.44); Carbon Dioxide 18 mmol/L (23-31); Chloride 112 mmol/L (98-107); Globulin 3.8 g/dL (2.4-3.5); Glucose 151 mg/dL (83-110); Potassium 3.6 mmol/L (3.5-5.1); Protein, Total 6.7 g/dL (5.8-8.1); Sodium 140 mmol/L (136-145)
[2021-10-13] MEDS ORDERED: [UNRECOGNIZED DRUG - OTHER] PO SCH (09:00)
[2021-10-13] MEDS: Ascorbic Acid 500 mg Chewable Tablet PO SCH (09:05)
[2021-10-13] MEDS: Aspirin 81 mg Enteric Coated Tablet PO SCH (09:05)
[2021-10-13] MEDS: Cholecalciferol (Vitamin D3) 5,000 UNITS CAPSULE PO SCH (09:06)
[2021-10-13] MEDS: Calcium Polycarbophil 625 MG TAB PO SCH (09:06)
[2021-10-13] MEDS: Ferrous Sulfate 325 MG TAB PO SCH ×2 (09:06→20:23)
[2021-10-13] MEDS: Zinc Sulfate 220 MG CAP PO SCH (09:06)
[2021-10-13] MEDS: Enoxaparin Sodium 30 MG/0.3 ML SYRINGE SC SCH (09:06)
[2021-10-13] MEDS: Megestrol Acetate 400 MG/10 ML UDCUP PO SCH (09:06)
[2021-10-13 11:35] LABS: Hemoglobin A1c 6.1 % (4.0-6.0)
[2021-10-14] MEDS: Ferrous Sulfate 325 MG TAB PO SCH ×2 (09:15→21:04)
[2021-10-14] MEDS: Ascorbic Acid 500 mg Chewable Tablet PO SCH (09:15)
[2021-10-14] MEDS: Zinc Sulfate 220 MG CAP PO SCH (09:15)
[2021-10-14] MEDS: Megestrol Acetate 400 MG/10 ML UDCUP PO SCH (09:15)
[2021-10-14] MEDS: Enoxaparin Sodium 30 MG/0.3 ML SYRINGE SC SCH (09:15)
[2021-10-14] MEDS: Cholecalciferol (Vitamin D3) 5,000 UNITS CAPSULE PO SCH (09:15)
[2021-10-14] MEDS: Calcium Polycarbophil 625 MG TAB PO SCH (09:15)
[2021-10-15] MEDS: Zinc Sulfate 220 MG CAP PO SCH (08:15)
[2021-10-15] MEDS: Polyethylene Glycol 3350 17 GM Packet PO PRN (08:15)
[2021-10-15] MEDS: Cholecalciferol (Vitamin D3) 5,000 UNITS CAPSULE PO SCH (08:15)
[2021-10-15] MEDS: Megestrol Acetate 400 MG/10 ML UDCUP PO SCH (08:15)
[2021-10-15] MEDS: Aspirin 81 mg Enteric Coated Tablet PO SCH (08:15)
[2021-10-15] MEDS: Ascorbic Acid 500 mg Chewable Tablet PO SCH (08:15)
[2021-10-15] MEDS: Ferrous Sulfate 325 MG TAB PO SCH ×2 (08:15→20:34)
[2021-10-15] MEDS: Calcium Polycarbophil 625 MG TAB PO SCH (08:15)
[2021-10-15] MEDS: Enoxaparin Sodium 30 MG/0.3 ML SYRINGE SC SCH (08:17)
[2021-10-16] MEDS: Zinc Sulfate 220 MG CAP PO SCH (09:15)
[2021-10-16] MEDS: Megestrol Acetate 400 MG/10 ML UDCUP PO SCH (09:15)
[2021-10-16] MEDS: Cholecalciferol (Vitamin D3) 5,000 UNITS CAPSULE PO SCH (09:16)
[2021-10-16] MEDS: Calcium Polycarbophil 625 MG TAB PO SCH (09:16)
[2021-10-16] MEDS: Ascorbic Acid 500 mg Chewable Tablet PO SCH (09:16)
[2021-10-16] MEDS: Ferrous Sulfate 325 MG TAB PO SCH ×2 (09:16→21:07)
[2021-10-16] MEDS: Enoxaparin Sodium 30 MG/0.3 ML SYRINGE SC SCH (09:16)
[2021-10-17] MEDS: Cholecalciferol (Vitamin D3) 5,000 UNITS CAPSULE PO SCH (08:38)
[2021-10-17] MEDS: Calcium Polycarbophil 625 MG TAB PO SCH (08:38)
[2021-10-17] MEDS: Megestrol Acetate 400 MG/10 ML UDCUP PO SCH (08:38)
[2021-10-17] MEDS: Zinc Sulfate 220 MG CAP PO SCH (08:38)
[2021-10-17] MEDS: Aspirin 81 mg Enteric Coated Tablet PO SCH (08:38)
[2021-10-17] MEDS: Enoxaparin Sodium 30 MG/0.3 ML SYRINGE SC SCH (08:38)
[2021-10-17] MEDS: Ascorbic Acid 500 mg Chewable Tablet PO SCH (08:38)
[2021-10-17] MEDS: Ferrous Sulfate 325 MG TAB PO SCH ×2 (08:38→20:41)
[2021-10-17] MEDS: Acetaminophen 325 MG TAB PO PRN (20:41)
[2021-10-17] MEDS: Polyethylene Glycol 3350 17 GM Packet PO PRN (20:41)
[2021-10-18] MEDS: Megestrol Acetate 400 MG/10 ML UDCUP PO SCH (08:27)
[2021-10-18] MEDS: Cholecalciferol (Vitamin D3) 5,000 UNITS CAPSULE PO SCH (08:27)
[2021-10-18] MEDS: Zinc Sulfate 220 MG CAP PO SCH (08:27)
[2021-10-18] MEDS: Ascorbic Acid 500 mg Chewable Tablet PO SCH (08:27)
[2021-10-18] MEDS: Calcium Polycarbophil 625 MG TAB PO SCH (08:27)
[2021-10-18] MEDS: Enoxaparin Sodium 30 MG/0.3 ML SYRINGE SC SCH (08:27)
[2021-10-18] MEDS: Ferrous Sulfate 325 MG TAB PO SCH ×2 (08:28→21:11)
[2021-10-18] MEDS: Polyethylene Glycol 3350 17 GM Packet PO PRN (21:11)
[2021-10-19] MEDS: Calcium Polycarbophil 625 MG TAB PO SCH (09:10)
[2021-10-19] MEDS: Cholecalciferol (Vitamin D3) 5,000 UNITS CAPSULE PO SCH (09:10)
[2021-10-19] MEDS: Ferrous Sulfate 325 MG TAB PO SCH ×2 (09:10→20:38)
[2021-10-19] MEDS: Aspirin 81 mg Enteric Coated Tablet PO SCH (09:10)
[2021-10-19] MEDS: Polyethylene Glycol 3350 17 GM Packet PO PRN (09:10)
[2021-10-19] MEDS: Zinc Sulfate 220 MG CAP PO SCH (09:10)
[2021-10-19] MEDS: Megestrol Acetate 400 MG/10 ML UDCUP PO SCH (09:10)
[2021-10-19] MEDS: Enoxaparin Sodium 30 MG/0.3 ML SYRINGE SC SCH (09:11)
[2021-10-20 05:36] LABS: #Basophils 0.1 thou/uL (0.0-0.2); #Eosinphils 0.1 thou/uL (0.0-0.7); #Lymphocytes 1.2 thou/uL (1.20-3.40); #Neutrophils 4.4 thou/uL (1.40-6.50); %Basophils 1.1 % (0.0-1.0); %Eosinophils 1.1 % (0.0-10.0); %Lymphocytes 18.2 % (21.0-51.0); %Neutrophils 65.5 % (42.0-75.0); Hemoglobin 8.4 g/dL (12.0-16.0); Mean Corpuscular HGB CONC 31.2 g/dL (32.0-36.0); Mean Corpuscular Hemoglobin 32.9 pg (27.0-31.0); Mean Corpuscular Volume 105.3 fL (78.0-98.0); Platelet Count 155 thou/uL (130-400); RBC Distribution Width 14.7 % (11.5-14.5); Red Blood Cell (RBC) Count 2.56 mill/uL (4.20-5.40); White Blood Cell (WBC) Count 6.8 thou/uL (4.8-10.8)
[2021-10-20 05:48] LABS: Anion Gap 15 mmol/L (10-20); BUN (Urea Nitrogen) 65 mg/dL (9.8-20.1); Calc. Creatinine Clearance 9 mL/min (70-130); Calcium 9.3 mg/dL (7.8-10.44); Carbon Dioxide 16 mmol/L (23-31); Chloride 111 mmol/L (98-107); Glucose 243 mg/dL (83-110); Sodium 137 mmol/L (136-145)
[2021-10-20] MEDS: Calcium Polycarbophil 625 MG TAB PO SCH (08:48)
[2021-10-20] MEDS: Ascorbic Acid 500 mg Chewable Tablet PO SCH (08:48)
[2021-10-20] MEDS: Megestrol Acetate 400 MG/10 ML UDCUP PO SCH (08:48)
[2021-10-20] MEDS: Enoxaparin Sodium 30 MG/0.3 ML SYRINGE SC SCH (08:48)
[2021-10-20] MEDS: Zinc Sulfate 220 MG CAP PO SCH (08:48)
[2021-10-20] MEDS: Cholecalciferol (Vitamin D3) 5,000 UNITS CAPSULE PO SCH (08:48)
[2021-10-20] MEDS: Lantus 1000 UNITS/10 ML VIAL SC SCH (08:51)
[2021-10-20] MEDS: Ferrous Sulfate 325 MG TAB PO SCH ×2 (08:53→20:42)
[2021-10-20] MEDS ORDERED: DARBEPOETIN ALFA 100 MCG/0.5 ML SC SCH (09:00)
[2021-10-20] MEDS ORDERED: [UNRECOGNIZED DRUG - OTHER] SC SCH (09:00)
[2021-10-21] MEDS: Ferrous Sulfate 325 MG TAB PO SCH ×2 (08:54→20:16)
[2021-10-21] MEDS: Aspirin 81 mg Enteric Coated Tablet PO SCH (08:54)
[2021-10-21] MEDS: Ascorbic Acid 500 mg Chewable Tablet PO SCH (08:54)
[2021-10-21] MEDS: Cholecalciferol (Vitamin D3) 5,000 UNITS CAPSULE PO SCH (08:54)
[2021-10-21] MEDS: Megestrol Acetate 400 MG/10 ML UDCUP PO SCH (08:54)
[2021-10-21] MEDS: Calcium Polycarbophil 625 MG TAB PO SCH (08:55)
[2021-10-21] MEDS: Zinc Sulfate 220 MG CAP PO SCH (08:55)
[2021-10-21] MEDS: Lantus 1000 UNITS/10 ML VIAL SC SCH (09:01)
[2021-10-21] MEDS: Enoxaparin Sodium 30 MG/0.3 ML SYRINGE SC SCH (09:21)
[2021-10-22] MEDS: Lantus 1000 UNITS/10 ML VIAL SC SCH (08:10)
[2021-10-22] MEDS: Zinc Sulfate 220 MG CAP PO SCH (08:11)
[2021-10-22] MEDS: Megestrol Acetate 400 MG/10 ML UDCUP PO SCH (08:11)
[2021-10-22] MEDS: Cholecalciferol (Vitamin D3) 5,000 UNITS CAPSULE PO SCH (08:12)
[2021-10-22] MEDS: Ferrous Sulfate 325 MG TAB PO SCH ×2 (08:12→20:27)
[2021-10-22] MEDS: Enoxaparin Sodium 30 MG/0.3 ML SYRINGE SC SCH (08:12)
[2021-10-22] MEDS: Calcium Polycarbophil 625 MG TAB PO SCH (08:12)
[2021-10-22] MEDS: Ascorbic Acid 500 mg Chewable Tablet PO SCH (08:12)
[2021-10-22] MEDS: Acetaminophen 325 MG TAB PO PRN (20:26)
[2021-10-23] MEDS: Polyethylene Glycol 3350 17 GM Packet PO PRN (08:20)
[2021-10-23] MEDS: Lantus 1000 UNITS/10 ML VIAL SC SCH (08:21)
[2021-10-23] MEDS: Calcium Polycarbophil 625 MG TAB PO SCH (08:21)
[2021-10-23] MEDS: Ascorbic Acid 500 mg Chewable Tablet PO SCH (08:21)
[2021-10-23] MEDS: Aspirin 81 mg Enteric Coated Tablet PO SCH (08:21)
[2021-10-23] MEDS: Ferrous Sulfate 325 MG TAB PO SCH ×2 (08:22→20:32)
[2021-10-23] MEDS: Megestrol Acetate 400 MG/10 ML UDCUP PO SCH (08:22)
[2021-10-23] MEDS: Zinc Sulfate 220 MG CAP PO SCH (08:22)
[2021-10-23] MEDS: Enoxaparin Sodium 30 MG/0.3 ML SYRINGE SC SCH (08:22)
[2021-10-23] MEDS: Cholecalciferol (Vitamin D3) 5,000 UNITS CAPSULE PO SCH (08:22)
[2021-10-24 08:04] VITALS: BP 135/65; TEMP 98.4
[2021-10-24] MEDS: Megestrol Acetate 400 MG/10 ML UDCUP PO SCH (08:23)
[2021-10-24] MEDS: Enoxaparin Sodium 30 MG/0.3 ML SYRINGE SC SCH (08:24)
[2021-10-24] MEDS: Calcium Polycarbophil 625 MG TAB PO SCH (08:24)
[2021-10-24] MEDS: Zinc Sulfate 220 MG CAP PO SCH (08:24)
[2021-10-24] MEDS: Cholecalciferol (Vitamin D3) 5,000 UNITS CAPSULE PO SCH (08:24)
[2021-10-24] MEDS: Ascorbic Acid 500 mg Chewable Tablet PO SCH (08:25)
[2021-10-24] MEDS: Lantus 1000 UNITS/10 ML VIAL SC SCH (08:25)
[2021-10-24] MEDS: Ferrous Sulfate 325 MG TAB PO SCH (08:25)
== END 2021-10-24 08:50 | disposition home or self-care (01) | DRG 178 ==
LOC: UNDOADMIN 16:30 → MADMS 16:30
PROVIDERS: ADMIT Family Medicine; ATTEND Family Medicine
PROC: 8E0ZXY6 Isolation (ICD-10-PCS; principal; 2021-10-12)
DX: U07.1 COVID-19 (principal); N18.4 Chronic kidney disease, stage 4 (severe); G93.49 Other encephalopathy; R53.81 Other malaise; R53.1 Weakness; K59.00 Constipation, unspecified; E78.5 Hyperlipidemia, unspecified; I12.9 Hypertensive chronic kidney disease with stage 1 through stage 4 chronic kidney disease, or unspecified chronic kidney disease; E11.22 Type 2 diabetes mellitus with diabetic chronic kidney disease; D63.1 Anemia in chronic kidney disease; Z85.038 Personal history of other malignant neoplasm of large intestine; Z88.1 Allergy status to other antibiotic agents; Z88.8 Allergy status to other drugs, medicaments and biological substances
CPT/HCPCS: 36415; 36416; 80048; 80053; 82728; 83036; 84466; 85025; J1650; J1815

== ENCOUNTER 2021-12-17 09:19 | Outpatient (CLI) | payer MEDICARE, BC ==
[2021-12-17 10:18] LABS: ALT (SGPT) 8 U/L (8-55); AST (SGOT) 12 U/L (5-34); Albumin 3.5 g/dL (3.4-4.8); Alkaline Phosphatase 52 U/L (40-110); Anion Gap 20 mmol/L (10-20); BUN (Urea Nitrogen) 53 mg/dL (9.8-20.1); Bilirubin, Total 0.4 mg/dL (0.2-1.2); Calc. Creatinine Clearance 0 mL/min (70-130); Calcium 9.2 mg/dL (7.8-10.44); Carbon Dioxide 18 mmol/L (23-31); Cardiac Risk 2.7 (Less than 4.5); Chloride 109 mmol/L (98-107); Cholesterol 126 mg/dl (< 200 Desired); Globulin 2.9 g/dL (2.4-3.5); Glucose 109 mg/dL (83-110); HDL Cholesterol 47 mg/dL (>60 Neg Risk); LDL Cholesterol, Calculated 76 mg/dL; Potassium 4.8 mmol/L (3.5-5.1); Protein, Total 6.4 g/dL (5.8-8.1); Sodium 142 mmol/L (136-145); Triglycerides 17 mg/dL (Less than 150)
[2021-12-17 16:10] LABS: Hemoglobin A1c 6.2 % (4.0-6.0)
[2021-12-17 16:28] LABS: Creatinine, Urine 31.81 mg/dL (47-110); Microalbumin Urine 5.4 mg/dL (0.5-50.0); Microalbumin/Creat Ratio 169.8 mg/g (Less than 30)
== END 2021-12-17 09:20 | disposition home or self-care (01) ==
LOC: MADLAB 09:19
PROVIDERS: ATTEND Internal Medicine Endocrinology, Diabetes & Metabolism
DX: E03.9 Hypothyroidism, unspecified (principal); E11.65 Type 2 diabetes mellitus with hyperglycemia
CPT/HCPCS: 80053; 80061; 82043; 83036; 84439; 84443

== ENCOUNTER 2022-06-26 17:57 | Emergency (ER) | payer MEDICARE, BC ==
[2022-06-26 18:53] LABS: ALT (SGPT) 16 U/L (8-55); AST (SGOT) 15 U/L (5-34); Albumin 3.7 g/dL (3.4-4.8); Alkaline Phosphatase 87 U/L (40-110); Anion Gap 14 mmol/L (10-20); BUN (Urea Nitrogen) 39 mg/dL (9.8-20.1); Bilirubin, Total 0.4 mg/dL (0.2-1.2); Calc. Creatinine Clearance 0 mL/min (70-130); Carbon Dioxide 25 mmol/L (23-31); Chloride 106 mmol/L (98-107); Estimated GFR 14; Glucose 197 mg/dL (83-110); Magnesium 2.2 mg/dL (1.6-2.6); Potassium 4.2 mmol/L (3.5-5.1); Protein, Total 6.7 g/dL (5.8-8.1); Sodium 141 mmol/L (136-145)
[2022-06-26 18:58] LABS: Band 12 % (5-11); Hemoglobin 12.3 g/dL (12.0-16.0); Lymphocytes 3 % (21-51); MDiff Complete? YES; Macrocytosis SLIGHT = 6-15 cells (100X) (0-5/hpf); Mean Corpuscular HGB CONC 30.5 g/dL (32.0-36.0); Mean Corpuscular Hemoglobin 32.5 pg (27.0-31.0); Mean Corpuscular Volume 106.7 fL (78.0-98.0); Monocytes 5 % (0-10); Neutrophil 79 % (42-75); Platelet Count 184 thou/uL (130-400); Platelet Morphology Comment PLT clumps seen-ADEQ; RBC Distribution Width 15.7 % (11.5-14.5); Reactive Lymphocytes 1 % (0-10); Red Blood Cell (RBC) Count 3.79 mill/uL (4.20-5.40); White Blood Cell (WBC) Count 10.8 thou/uL (4.8-10.8)
[2022-06-26] MEDS ORDERED: Ondansetron PF 4 MG/2 ML Vial ONE (19:32)
[2022-06-26 20:23] LABS: Bilirubin Negative (Negative); Blood, Urine Negative (Negative); Clarity Clear (Clear); Glucose, Urine (Dipstick) Negative (Negative); Ketone, Urine Negative (Negative); Leukocyte Negative (Negative); Nitrite Negative (Negative); Protein, Urine (Dipstick) 30 mg/dL (Neg-Trace); Specific Gravity, Urine 1.015 (1.005-1.030); Urobilinogen 0.2 mg/dL (Less than 2); pH, Urine 5.5 (5.0-9.0)
[2022-06-26 20:24] LABS: RBC/HPF None Seen HPF (0-3); Squamous Epithelial 0-3 HPF (0-3); WBC/HPF 0-3 HPF (0-3)
== END 2022-06-26 21:09 | disposition home or self-care (01) ==
LOC: MADERS 17:57
DX: K52.9 Noninfective gastroenteritis and colitis, unspecified (principal); I12.0 Hypertensive chronic kidney disease with stage 5 chronic kidney disease or end stage renal disease; E11.22 Type 2 diabetes mellitus with diabetic chronic kidney disease; N18.5 Chronic kidney disease, stage 5; E03.9 Hypothyroidism, unspecified; M81.0 Age-related osteoporosis without current pathological fracture; Z85.038 Personal history of other malignant neoplasm of large intestine; Z79.82 Long term (current) use of aspirin; Z79.4 Long term (current) use of insulin; Z79.899 Other long term (current) drug therapy
CPT/HCPCS: 36415; 80053; 81003; 81015; 83735; 83880; 85025; 87086; 93005; 96374; J2405

== ENCOUNTER 2022-09-01 18:17 | Emergency (ER) | payer MEDICARE, BC ==
[2022-09-01 19:36] LABS: #Eosinphils 0.1 thou/uL (0.0-0.7); #Lymphocytes 0.7 thou/uL (1.20-3.40); #Neutrophils 11.7 thou/uL (1.40-6.50); %Basophils 0.3 % (0.0-1.0); %Eosinophils 0.7 % (0.0-10.0); %Lymphocytes 4.8 % (21.0-51.0); %Monocytes 7.5 % (0.0-10.0); %Neutrophils 86.7 % (42.0-75.0); Hemoglobin 11.3 g/dL (12.0-16.0); Mean Corpuscular HGB CONC 30.4 g/dL (32.0-36.0); Mean Corpuscular Hemoglobin 31.2 pg (27.0-31.0); Mean Corpuscular Volume 102.4 fl (78.0-98.0); Mean Platelet Volume 5.8 fL (7.4-10.4); Platelet Count 178 10x3/uL (130-400); RBC Distribution Width 16.4 % (11.5-14.5); Red Blood Cell (RBC) Count 3.62 mill/uL (4.20-5.40); White Blood Cell (WBC) Count 13.5 10x3/uL (4.8-10.8)
[2022-09-01] MEDS ORDERED: Sodium Chloride 0.9% 500 ML ONE (19:39)
[2022-09-01 19:56] LABS: ALT (SGPT) 25 U/L (8-55); AST (SGOT) 28 U/L (5-34); Albumin 3.7 g/dL (3.4-4.8); Alkaline Phosphatase 103 U/L (40-110); Anion Gap 16 mmol/L (10-20); BUN (Urea Nitrogen) 48 mg/dL (9.8-20.1); Bilirubin, Total 0.4 mg/dL (0.2-1.2); Calc. Creatinine Clearance 0 mL/min (70-130); Calcium 9.2 mg/dL (7.8-10.44); Carbon Dioxide 23 mmol/L (23-31); Chloride 107 mmol/L (98-107); Estimated GFR 14; Globulin 3.1 g/dL (2.4-3.5); Glucose 127 mg/dL (83-110); Lipase 34 U/L (8-78); Magnesium 2.1 mg/dL (1.6-2.6); Potassium 3.8 mmol/L (3.5-5.1); Protein, Total 6.8 g/dL (5.8-8.1); Sodium 142 mmol/L (136-145)
[2022-09-01 20:48] LABS: Bilirubin Negative (Negative); Blood, Urine Trace (Negative); Clarity Clear (Clear); Glucose, Urine (Dipstick) Negative (Negative); Ketone, Urine Negative (Negative); Leukocyte Trace (Negative); Nitrite Negative (Negative); Protein, Urine (Dipstick) 30 mg/dL (Neg-Trace); Specific Gravity, Urine 1.015 (1.005-1.030); Urobilinogen 0.2 mg/dL (Less than 2)
[2022-09-01 20:59] LABS: Bacteria/HPF None Seen HPF (None Seen); RBC/HPF 0-3 HPF (0-3); Squamous Epithelial 0-3 HPF (0-3)
[2022-09-01] MEDS ORDERED: cefTRIAXone\\ROCEPHIN 2 GM VIAL ONE (21:13)
[2022-09-01] MEDS ORDERED: Sodium Chloride 0.9% 100 ML ONE (21:14)
== END 2022-09-01 22:33 | disposition home or self-care (01) ==
LOC: MADERS 18:17
DX: K52.9 Noninfective gastroenteritis and colitis, unspecified (principal); N39.0 Urinary tract infection, site not specified; D72.829 Elevated white blood cell count, unspecified; E11.22 Type 2 diabetes mellitus with diabetic chronic kidney disease; N18.5 Chronic kidney disease, stage 5; I12.0 Hypertensive chronic kidney disease with stage 5 chronic kidney disease or end stage renal disease; E03.9 Hypothyroidism, unspecified; Z79.82 Long term (current) use of aspirin; Z79.4 Long term (current) use of insulin
CPT/HCPCS: 80053; 81003; 81015; 83690; 83735; 85025; 87086; 96374; J0696; J3490; J7030

== ENCOUNTER 2022-12-03 17:41 | Emergency (ER) | payer MEDICARE, BC ==
[2022-12-03] MEDS ORDERED: Amlodipine 5 MG TAB ONE (18:34)
== END 2022-12-03 19:10 | disposition home or self-care (01) ==
LOC: MADERS 17:41
DX: T18.198A Other foreign object in esophagus causing other injury, initial encounter (principal); R09.89 Other specified symptoms and signs involving the circulatory and respiratory systems; I12.0 Hypertensive chronic kidney disease with stage 5 chronic kidney disease or end stage renal disease; E11.22 Type 2 diabetes mellitus with diabetic chronic kidney disease; N18.5 Chronic kidney disease, stage 5; E03.9 Hypothyroidism, unspecified; M81.0 Age-related osteoporosis without current pathological fracture; Z85.038 Personal history of other malignant neoplasm of large intestine; Z79.4 Long term (current) use of insulin; Z79.899 Other long term (current) drug therapy
CPT/HCPCS: 99283

== ENCOUNTER 2022-12-20 19:41 | Emergency (ER) | payer MEDICARE, BC ==
[~2022-12-20 19:41] MED LIST: Sodium Chloride 0.9% 100 ML BAG ONE
[2022-12-20 20:29] LABS: #Basophils 0.2 thou/uL (0.0-0.2); #Eosinphils 0.1 thou/uL (0.0-0.7); #Lymphocytes 1.9 thou/uL (1.20-3.40); #Monocytes 0.9 thou/uL (0.11-0.59); #Neutrophils 6.2 thou/uL (1.40-6.50); %Basophils 1.7 % (0.0-1.0); %Eosinophils 1.2 % (0.0-10.0); %Lymphocytes 20.3 % (21.0-51.0); %Monocytes 9.6 % (0.0-10.0); %Neutrophils 67.2 % (42.0-75.0); Hypochromia SLIGHT = 6-15 cells (100X) (0-5/hpf); MDiff Complete? YES; Macrocytosis SLIGHT = 6-15 cells (100X) (0-5/hpf); Mean Corpuscular HGB CONC 29.6 g/dL (32.0-36.0); Mean Corpuscular Hemoglobin 30.7 pg (27.0-31.0); Mean Corpuscular Volume 103.8 fl (78.0-98.0); Mean Platelet Volume 8.2 fL (7.4-10.4); Platelet Count 155 10x3/uL (130-400); Red Blood Cell (RBC) Count 3.92 mill/uL (4.20-5.40); White Blood Cell (WBC) Count 9.3 10x3/uL (4.8-10.8)
[2022-12-20] MEDS ORDERED: Metoprolol Tartrate 5 MG/5 ML VIAL ONE (20:37)
[2022-12-20 20:39] LABS: ALT (SGPT) 18 U/L (8-55); AST (SGOT) 15 U/L (5-34); Albumin 4.1 g/dL (3.4-4.8); Alkaline Phosphatase 99 U/L (40-110); Anion Gap 17 mmol/L (10-20); BUN (Urea Nitrogen) 42 mg/dL (9.8-20.1); Bilirubin, Total 0.3 mg/dL (0.2-1.2); Calc. Creatinine Clearance 0 mL/min (70-130); Calcium 9.4 mg/dL (7.8-10.44); Carbon Dioxide 26 mmol/L (23-31); Chloride 102 mmol/L (98-107); Estimated GFR 17; Globulin 3.2 g/dL (2.4-3.5); Glucose 146 mg/dL (83-110); Potassium 4.3 mmol/L (3.5-5.1); Protein, Total 7.3 g/dL (5.8-8.1); Sodium 141 mmol/L (136-145)
[2022-12-20 20:56] LABS: CKMB 2.6 ng/mL (0-6.6)
[2022-12-20] MEDS ORDERED: Diltiazem 125 MG/25 ML SDV ONE (22:34)
[2022-12-20 23:59] LABS: CKMB 2.8 ng/mL (0-6.6)
== END 2022-12-21 00:14 | disposition short-term general hospital (02) ==
LOC: MADERS 19:41
DX: I47.1 Supraventricular tachycardia (principal); R77.8 Other specified abnormalities of plasma proteins; E11.22 Type 2 diabetes mellitus with diabetic chronic kidney disease; I12.0 Hypertensive chronic kidney disease with stage 5 chronic kidney disease or end stage renal disease; N18.5 Chronic kidney disease, stage 5; E03.9 Hypothyroidism, unspecified; Z79.4 Long term (current) use of insulin; Z79.899 Other long term (current) drug therapy
CPT/HCPCS: 71045; 80053; 82553; 83880; 84484; 85025; 93005; 96365; 96366; 96375; 96376

== ENCOUNTER 2023-05-11 21:35 | Inpatient (IN) | payer MEDICARE, BC ==
[2023-05-11] MEDS ORDERED: traMADol HCl 50 MG TAB PO PRN (23:00)
[2023-05-11] MEDS ORDERED: Acetaminophen 500 MG TAB PO PRN (23:01)
[2023-05-12] MEDS ORDERED: Acetaminophen 325 MG TAB PO PRN (06:03)
[2023-05-12] MEDS ORDERED: Ferrous Sulfate 325 MG TAB PO SCH (08:00)
[2023-05-12] MEDS ORDERED: SEVELAMER HCL 800 MG PO SCH (08:00)
[2023-05-12] MEDS: Sevelamer Carbonate 800 MG TAB PO SCH ×3 (08:57→16:51)
[2023-05-12] MEDS: Apixaban 2.5 MG TAB PO SCH ×2 (08:58→20:21)
[2023-05-12] MEDS: Lantus 1000 UNITS/10 ML VIAL SC SCH (08:58)
[2023-05-12] MEDS: Polyethylene Glycol 3350 17 GM Packet PO SCH (08:59)
[2023-05-12] MEDS: Lidocaine 4% Patch TP SCH (08:59)
[2023-05-12] MEDS ORDERED: Non-Formulary Item 1 EACH (Insulin Glargine,Hum.Rec.Anlog [Basaglar Kwikpen U-100] 100 UN SQ SCH (09:00)
[2023-05-12] MEDS: Diclofenac 1% 100 GM Topical GEL TP SCH ×4 (09:02→20:27)
[2023-05-12] MEDS: Acetaminophen 500 MG TAB PO PRN ×2 (09:11→17:48)
[2023-05-12 09:41] LABS: BUN (Urea Nitrogen) 27 mg/dL (9.8-20.1); Calc. Creatinine Clearance 11 mL/min (70-130); Calcium 8.2 mg/dL (7.6-10.4); Carbon Dioxide 21 mmol/L (23-31); Chloride 102 mmol/L (98-107); Estimated GFR 19; Glucose 315 mg/dL (83-110); Potassium 3.8 mmol/L (3.5-5.1); Sodium 137 mmol/L (136-145)
[2023-05-12 09:42] LABS: Anion Gap 18 mmol/L (10-20)
[2023-05-12 09:59] LABS: White Blood Cell (WBC) Count 5.8 10x3/uL (4.8-10.8)
[2023-05-12 10:00] LABS: Hemoglobin 7.8 g/dL (12.0-16.0); Mean Corpuscular Hemoglobin 30.8 pg (27.0-31.0); Red Blood Cell (RBC) Count 2.55 mill/uL (4.20-5.40)
[2023-05-12 10:01] LABS: #Basophils 0.2 thou/uL (0.0-0.2); #Eosinphils 0.2 thou/uL (0.0-0.7); #Lymphocytes 3.4 thou/uL (1.20-3.40); #Monocytes 0.9 thou/uL (0.11-0.59); #Neutrophils 5.8 thou/uL (1.40-6.50); %Basophils 1.6 % (0.0-1.0); %Eosinophils 1.9 % (0.0-10.0); %Lymphocytes 32.7 % (21.0-51.0); %Monocytes 8.5 % (0.0-10.0); %Neutrophils 55.3 % (42.0-75.0); Mean Corpuscular HGB CONC 30.2 g/dL (32.0-36.0); Mean Platelet Volume 6.5 fL (7.4-10.4); Platelet Count 173 10x3/uL (130-400)
[2023-05-12] MEDS: traMADol HCl 50 MG TAB PO PRN ×2 (11:23→20:21)
[2023-05-12] MEDS: Amlodipine 5 MG TAB PO SCH (20:20)
[2023-05-12] MEDS: Calcium Carbonate 600 MG + Vit D TAB PO SCH (20:21)
[2023-05-12] MEDS: Transdermal Patch Removal TOP SCH (20:24)
[2023-05-12] MEDS ORDERED: Non-Formulary Item 1 EACH (Amlodipine Besylate [Norvasc] 2.5 MG Tablet) PO SCH (21:00)
[2023-05-12] MEDS ORDERED: Metamucil PACK PO SCH (21:00)
[2023-05-12] MEDS ORDERED: Non-Formulary Item 1 EACH (Psyllium Husk [Metamucil] 0.4 GM Capsule) PO SCH (21:00)
[2023-05-13] MEDS: Lidocaine 4% Patch TP SCH (08:14)
[2023-05-13] MEDS: Lantus 1000 UNITS/10 ML VIAL SC SCH (08:14)
[2023-05-13] MEDS: Sevelamer Carbonate 800 MG TAB PO SCH ×3 (08:14→17:04)
[2023-05-13] MEDS: Diclofenac 1% 100 GM Topical GEL TP SCH ×4 (08:14→21:16)
[2023-05-13] MEDS: Apixaban 2.5 MG TAB PO SCH ×2 (08:14→21:16)
[2023-05-13] MEDS: Polyethylene Glycol 3350 17 GM Packet PO SCH (08:15)
[2023-05-13] MEDS: traMADol HCl 50 MG TAB PO PRN ×3 (08:28→21:16)
[2023-05-13] MEDS: Amlodipine 5 MG TAB PO SCH (21:15)
[2023-05-13] MEDS: Transdermal Patch Removal TOP SCH (21:16)
[2023-05-13] MEDS: Metamucil PACK PO SCH (21:16)
[2023-05-13] MEDS: Calcium Carbonate 600 MG + Vit D TAB PO SCH (21:16)
[2023-05-14] MEDS: Polyethylene Glycol 3350 17 GM Packet PO SCH (08:36)
[2023-05-14] MEDS: Lidocaine 4% Patch TP SCH (08:37)
[2023-05-14] MEDS: Apixaban 2.5 MG TAB PO SCH ×2 (08:37→21:08)
[2023-05-14] MEDS: Sevelamer Carbonate 800 MG TAB PO SCH ×3 (08:37→17:14)
[2023-05-14] MEDS: Lantus 1000 UNITS/10 ML VIAL SC SCH (08:38)
[2023-05-14] MEDS: traMADol HCl 50 MG TAB PO PRN ×2 (08:49→15:45)
[2023-05-14] MEDS: Diclofenac 1% 100 GM Topical GEL TP SCH ×4 (08:51→21:09)
[2023-05-14] MEDS: Acetaminophen 500 MG TAB PO PRN ×2 (11:38→21:08)
[2023-05-14] MEDS: Metamucil PACK PO SCH (21:08)
[2023-05-14] MEDS: Calcium Carbonate 600 MG + Vit D TAB PO SCH (21:08)
[2023-05-14] MEDS: Amlodipine 5 MG TAB PO SCH (21:08)
[2023-05-14] MEDS: Transdermal Patch Removal TOP SCH (21:09)
[2023-05-15] MEDS: traMADol HCl 50 MG TAB PO PRN ×4 (01:07→21:05)
[2023-05-15] MEDS: Polyethylene Glycol 3350 17 GM Packet PO SCH (08:15)
[2023-05-15] MEDS: Diclofenac 1% 100 GM Topical GEL TP SCH ×4 (08:15→21:07)
[2023-05-15] MEDS: Sevelamer Carbonate 800 MG TAB PO SCH ×3 (08:16→17:32)
[2023-05-15] MEDS: Apixaban 2.5 MG TAB PO SCH ×2 (08:16→21:05)
[2023-05-15] MEDS: Lantus 1000 UNITS/10 ML VIAL SC SCH (08:16)
[2023-05-15] MEDS: Lidocaine 4% Patch TP SCH (08:17)
[2023-05-15] MEDS: Acetaminophen 500 MG TAB PO PRN (11:52)
[2023-05-15] MEDS: Amlodipine 5 MG TAB PO SCH (21:05)
[2023-05-15] MEDS: Calcium Carbonate 600 MG + Vit D TAB PO SCH (21:05)
[2023-05-15] MEDS: Transdermal Patch Removal TOP SCH (21:07)
[2023-05-15] MEDS: Metamucil PACK PO SCH (21:17)
[2023-05-16] MEDS: Apixaban 2.5 MG TAB PO SCH ×2 (08:32→20:44)
[2023-05-16] MEDS: Lidocaine 4% Patch TP SCH (08:33)
[2023-05-16] MEDS: Polyethylene Glycol 3350 17 GM Packet PO SCH (08:33)
[2023-05-16] MEDS: Diclofenac 1% 100 GM Topical GEL TP SCH ×4 (08:33→20:45)
[2023-05-16] MEDS: Sevelamer Carbonate 800 MG TAB PO SCH ×3 (08:33→17:36)
[2023-05-16] MEDS: traMADol HCl 50 MG TAB PO PRN ×3 (08:34→20:44)
[2023-05-16] MEDS: Lantus 1000 UNITS/10 ML VIAL SC SCH (08:34)
[2023-05-16] MEDS: Acetaminophen 500 MG TAB PO PRN (12:02)
[2023-05-16] MEDS ORDERED: diphenhydrAMINE 12.5 MG/5 ML UDCUP PO PRN (16:38)
[2023-05-16] MEDS ORDERED: Iron, Sodium Ferric Gluconate 125 MG in Sodium Chloride 0.9% 100 ML IVPB SCH (17:30)
[2023-05-16] MEDS: Amlodipine 5 MG TAB PO SCH (20:44)
[2023-05-16] MEDS: Calcium Carbonate 600 MG + Vit D TAB PO SCH (20:44)
[2023-05-16] MEDS: Transdermal Patch Removal TOP SCH (20:45)
[2023-05-16] MEDS: Metamucil PACK PO SCH (20:45)
[2023-05-17] MEDS: traMADol HCl 50 MG TAB PO PRN ×3 (07:54→21:25)
[2023-05-17] MEDS: Apixaban 2.5 MG TAB PO SCH ×2 (08:18→21:26)
[2023-05-17] MEDS: Sevelamer Carbonate 800 MG TAB PO SCH ×3 (08:18→17:01)
[2023-05-17] MEDS: Polyethylene Glycol 3350 17 GM Packet PO SCH (08:18)
[2023-05-17] MEDS: Lidocaine 4% Patch TP SCH (08:18)
[2023-05-17] MEDS: Lantus 1000 UNITS/10 ML VIAL SC SCH (08:20)
[2023-05-17] MEDS: Diclofenac 1% 100 GM Topical GEL TP SCH ×4 (08:20→21:28)
[2023-05-17] MEDS: Calcium Carbonate 600 MG + Vit D TAB PO SCH (21:26)
[2023-05-17] MEDS: Amlodipine 5 MG TAB PO SCH (21:26)
[2023-05-17] MEDS: Metamucil PACK PO SCH (21:28)
[2023-05-17] MEDS: Transdermal Patch Removal TOP SCH (21:28)
[2023-05-18] MEDS: Sevelamer Carbonate 800 MG TAB PO SCH ×3 (08:52→17:50)
[2023-05-18] MEDS: Apixaban 2.5 MG TAB PO SCH ×2 (08:56→20:41)
[2023-05-18] MEDS: Polyethylene Glycol 3350 17 GM Packet PO SCH (08:56)
[2023-05-18] MEDS: Lidocaine 4% Patch TP SCH (08:56)
[2023-05-18] MEDS: Lantus 1000 UNITS/10 ML VIAL SC SCH (08:58)
[2023-05-18] MEDS: Diclofenac 1% 100 GM Topical GEL TP SCH ×4 (08:58→20:47)
[2023-05-18] MEDS ORDERED: DARBEPOETIN ALFA SC SCH (09:00)
[2023-05-18] MEDS ORDERED: EPOETIN ALFA-EPBX (ESRD) 40,000 UNITS/ML VIAL SC SCH (09:00)
[2023-05-18] MEDS: traMADol HCl 50 MG TAB PO PRN ×2 (10:12→16:17)
[2023-05-18] MEDS ORDERED: EPOETIN ALFA-EPBX (ESRD) 10,000 UNITS/ML VIAL SC SCH (12:00)
[2023-05-18 12:45] VITALS: BMI 16.9
[2023-05-18] MEDS: Acetaminophen 500 MG TAB PO PRN ×2 (12:49→20:41)
[2023-05-18] MEDS: Calcium Carbonate 600 MG + Vit D TAB PO SCH (20:41)
[2023-05-18] MEDS: Amlodipine 5 MG TAB PO SCH (20:41)
[2023-05-18] MEDS: Metamucil PACK PO SCH (20:41)
[2023-05-18] MEDS: Transdermal Patch Removal TOP SCH (20:43)
[2023-05-19] MEDS: traMADol HCl 50 MG TAB PO PRN ×3 (05:01→23:52)
[2023-05-19 05:29] LABS: #Basophils 0.1 thou/uL (0.0-0.2); #Eosinphils 0.2 thou/uL (0.0-0.7); #Lymphocytes 2.6 thou/uL (1.20-3.40); #Monocytes 0.8 thou/uL (0.11-0.59); #Neutrophils 2.4 thou/uL (1.40-6.50); %Basophils 1.3 % (0.0-1.0); %Eosinophils 2.8 % (0.0-10.0); %Lymphocytes 43.4 % (21.0-51.0); %Monocytes 12.4 % (0.0-10.0); %Neutrophils 40.1 % (42.0-75.0); Hematocrit 25.9 % (36.0-47.0); Hemoglobin 8.3 g/dL (12.0-16.0); Mean Corpuscular HGB CONC 32.1 g/dL (32.0-36.0); Mean Corpuscular Hemoglobin 31.9 pg (27.0-31.0); Mean Corpuscular Volume 99.6 fl (78.0-98.0); Mean Platelet Volume 6.8 fL (7.4-10.4); Platelet Count 179 10x3/uL (130-400); RBC Distribution Width 18.4 % (11.5-14.5)
[2023-05-19] MEDS: Apixaban 2.5 MG TAB PO SCH ×2 (08:12→20:39)
[2023-05-19] MEDS: Diclofenac 1% 100 GM Topical GEL TP SCH ×4 (08:12→20:39)
[2023-05-19] MEDS: Sevelamer Carbonate 800 MG TAB PO SCH ×3 (08:12→16:53)
[2023-05-19] MEDS: Lantus 1000 UNITS/10 ML VIAL SC SCH (08:12)
[2023-05-19] MEDS: Lidocaine 4% Patch TP SCH (08:14)
[2023-05-19] MEDS: Polyethylene Glycol 3350 17 GM Packet PO SCH (08:14)
[2023-05-19 13:15] LABS: Iron 30 ug/dL (50-170); Iron Binding Capacity, Total 296 mcg/dL (265-497)
[2023-05-19 14:31] LABS: Anion Gap 16 mmol/L (10-20); BUN (Urea Nitrogen) 22 mg/dL (9.8-20.1); Calc. Creatinine Clearance 12 mL/min (70-130); Calcium 8.3 mg/dL (7.8-10.44); Carbon Dioxide 23 mmol/L (23-31); Chloride 103 mmol/L (98-107); Estimated GFR 20; Glucose 128 mg/dL (83-110); Potassium 3.7 mmol/L (3.5-5.1); Sodium 138 mmol/L (136-145)
[2023-05-19] MEDS: Amlodipine 5 MG TAB PO SCH (20:39)
[2023-05-19] MEDS: Metamucil PACK PO SCH (20:39)
[2023-05-19] MEDS: Calcium Carbonate 600 MG + Vit D TAB PO SCH (20:39)
[2023-05-19] MEDS: Transdermal Patch Removal TOP SCH (20:50)
[2023-05-20] MEDS: traMADol HCl 50 MG TAB PO PRN ×3 (06:55→20:01)
[2023-05-20] MEDS: Lantus 1000 UNITS/10 ML VIAL SC SCH (08:06)
[2023-05-20] MEDS: Sevelamer Carbonate 800 MG TAB PO SCH ×3 (08:06→16:58)
[2023-05-20] MEDS: Diclofenac 1% 100 GM Topical GEL TP SCH ×4 (08:06→20:01)
[2023-05-20] MEDS: Apixaban 2.5 MG TAB PO SCH ×2 (08:06→20:00)
[2023-05-20] MEDS: Lidocaine 4% Patch TP SCH (08:07)
[2023-05-20] MEDS: Polyethylene Glycol 3350 17 GM Packet PO SCH (08:12)
[2023-05-20] MEDS: Acetaminophen 500 MG TAB PO PRN (16:13)
[2023-05-20] MEDS: Calcium Carbonate 600 MG + Vit D TAB PO SCH (20:00)
[2023-05-20] MEDS: Amlodipine 5 MG TAB PO SCH (20:00)
[2023-05-20] MEDS: Transdermal Patch Removal TOP SCH (20:01)
[2023-05-20] MEDS: Metamucil PACK PO SCH (20:01)
[2023-05-21 07:19] VITALS: BP 158/51; TEMP 97.7
[2023-05-21] MEDS: Sevelamer Carbonate 800 MG TAB PO SCH (07:34)
[2023-05-21] MEDS: traMADol HCl 50 MG TAB PO PRN (07:34)
[2023-05-21] MEDS: Lidocaine 4% Patch TP SCH (08:28)
[2023-05-21] MEDS: Apixaban 2.5 MG TAB PO SCH (08:29)
[2023-05-21] MEDS: Polyethylene Glycol 3350 17 GM Packet PO SCH (08:29)
[2023-05-21] MEDS: Diclofenac 1% 100 GM Topical GEL TP SCH (08:30)
[2023-05-21] MEDS: Lantus 1000 UNITS/10 ML VIAL SC SCH (08:32)
== END 2023-05-21 10:10 | disposition home health service (06) | DRG 560 ==
LOC: MADMS 21:35
PROVIDERS: ADMIT Family Medicine; ATTEND Family Medicine
DX: S32.592D Other specified fracture of left pubis, subsequent encounter for fracture with routine healing (principal); N18.4 Chronic kidney disease, stage 4 (severe); R53.81 Other malaise; M54.9 Dorsalgia, unspecified; E03.9 Hypothyroidism, unspecified; E11.22 Type 2 diabetes mellitus with diabetic chronic kidney disease; Z66 Do not resuscitate; I48.91 Unspecified atrial fibrillation; S32.591D Other specified fracture of right pubis, subsequent encounter for fracture with routine healing; W18.30XD Fall on same level, unspecified, subsequent encounter; D50.9 Iron deficiency anemia, unspecified; I12.9 Hypertensive chronic kidney disease with stage 1 through stage 4 chronic kidney disease, or unspecified chronic kidney disease; Z91.048 Other nonmedicinal substance allergy status; Z91.041 Radiographic dye allergy status; Z88.2 Allergy status to sulfonamides; Z88.8 Allergy status to other drugs, medicaments and biological substances; Z88.7 Allergy status to serum and vaccine; Z79.4 Long term (current) use of insulin; Z79.899 Other long term (current) drug therapy; Z79.01 Long term (current) use of anticoagulants; Z85.038 Personal history of other malignant neoplasm of large intestine; Z92.21 Personal history of antineoplastic chemotherapy; Z60.2 Problems related to living alone; Z88.1 Allergy status to other antibiotic agents
CPT/HCPCS: 36415; 36416; 72170; 80048; 82728; 83540; 83550; 85025; J1815; J2916; J3490; Q0163; Q5105

== ENCOUNTER 2023-06-21 09:56 | Emergency (ER) | payer MEDICARE, BC ==
[2023-06-21] MEDS ORDERED: Sodium Chloride 0.9% 500 ML ONE (10:20)
[2023-06-21 11:05] LABS: ALT (SGPT) Less than 7 U/L (8-55); AST (SGOT) 19 U/L (5-34); Albumin 3.5 g/dL (3.4-4.8); Alkaline Phosphatase 130 U/L (40-110); Anion Gap 18 mmol/L (10-20); BUN (Urea Nitrogen) 29 mg/dL (9.8-20.1); Bilirubin, Total 0.4 mg/dL (0.2-1.2); Calc. Creatinine Clearance 0 mL/min (70-130); Calcium 8.9 mg/dL (7.8-10.44); Carbon Dioxide 23 mmol/L (23-31); Chloride 100 mmol/L (98-107); Estimated GFR 20; Globulin 3.5 g/dL (2.4-3.5); Glucose 202 mg/dL (83-110); Magnesium 2.2 mg/dL (1.6-2.6); Potassium 3.8 mmol/L (3.5-5.1); Sodium 137 mmol/L (136-145)
[2023-06-21 11:07] LABS: Troponin I 0.037 ng/mL (< 0.028)
[2023-06-21 11:20] LABS: #Basophils 0.1 thou/uL (0.0-0.2); #Eosinphils 0.1 thou/uL (0.0-0.7); #Lymphocytes 1.8 thou/uL (1.20-3.40); #Monocytes 0.8 thou/uL (0.11-0.59); #Neutrophils 5.5 thou/uL (1.40-6.50); %Basophils 1.2 % (0.0-1.0); %Eosinophils 0.9 % (0.0-10.0); %Lymphocytes 21.7 % (21.0-51.0); %Monocytes 9.5 % (0.0-10.0); %Neutrophils 66.7 % (42.0-75.0); Anisocytosis SLIGHT = 6-15 cells (100X) (0-5/hpf); Hemoglobin 10.1 g/dL (12.0-16.0); Hypochromia SLIGHT = 6-15 cells (100X) (0-5/hpf); MDiff Complete? YES; Macrocytosis SLIGHT = 6-15 cells (100X) (0-5/hpf); Mean Corpuscular HGB CONC 30.7 g/dL (32.0-36.0); Mean Corpuscular Hemoglobin 31.3 pg (27.0-31.0); Mean Corpuscular Volume 102.1 fl (78.0-98.0); Mean Platelet Volume 6.8 fL (7.4-10.4); Platelet Adequacy Comment Appears Adequate; Platelet Count 192 10x3/uL (130-400); RBC Distribution Width 19.2 % (11.5-14.5); Red Blood Cell (RBC) Count 3.23 mill/uL (4.20-5.40); White Blood Cell (WBC) Count 8.2 10x3/uL (4.8-10.8)
[2023-06-21] MEDS ORDERED: Aspirin 325 MG TAB ONE (12:24)
[2023-06-21 12:27] LABS: Bilirubin Negative (Negative); Blood, Urine Trace (Negative); Clarity Clear (Clear); Glucose, Urine (Dipstick) 100 mg/dL (Negative); Ketone, Urine Negative (Negative); Leukocyte Negative (Negative); Nitrite Negative (Negative); Protein, Urine (Dipstick) 100 mg/dL (Neg-Trace); RBC/HPF 0-3 HPF (0-3); Specific Gravity, Urine 1.015 (1.005-1.030); Urobilinogen 0.2 mg/dL (Less than 2)
[2023-06-21 12:28] LABS: Bacteria/HPF Rare-Few HPF (None Seen); CAUTI Indications for Culture Dysuria,urgency,freq; Squamous Epithelial 0-3 HPF (0-3); WBC/HPF 0-3 HPF (0-3)
[2023-06-21 12:29] LABS: Urine Culture Reflex No No
== END 2023-06-21 13:24 | disposition short-term general hospital (02) ==
LOC: MADERS 09:56
DX: N17.9 Acute kidney failure, unspecified (principal); E86.0 Dehydration; R53.1 Weakness; R77.8 Other specified abnormalities of plasma proteins; I12.9 Hypertensive chronic kidney disease with stage 1 through stage 4 chronic kidney disease, or unspecified chronic kidney disease; E11.22 Type 2 diabetes mellitus with diabetic chronic kidney disease; N18.4 Chronic kidney disease, stage 4 (severe); M81.0 Age-related osteoporosis without current pathological fracture; Z79.82 Long term (current) use of aspirin; Z79.4 Long term (current) use of insulin; Z79.84 Long term (current) use of oral hypoglycemic drugs; Z79.899 Other long term (current) drug therapy; Z85.038 Personal history of other malignant neoplasm of large intestine; Z95.0 Presence of cardiac pacemaker
CPT/HCPCS: 71045; 80053; 81001; 83735; 83880; 84484; 85025; 93005; J7030

== ENCOUNTER 2023-06-24 11:26 | Inpatient (IN) | payer MEDICARE, BC ==
[2023-06-24] MEDS ORDERED: Dextrose 50% Abboject 50 ML SYRINGE IVP PRN (13:45)
[2023-06-24] MEDS ORDERED: Dextrose 5% in Water 1,000 ML IV PRN (13:45)
[2023-06-24] MEDS ORDERED: Glucagon 1 MG/ML KIT IM PRN (13:45)
[2023-06-24] MEDS ORDERED: Acetaminophen 500 MG TAB PO PRN (13:59)
[2023-06-24] MEDS: Sevelamer Carbonate 800 MG TAB PO SCH (16:46)
[2023-06-24] MEDS: traMADol HCl 50 MG TAB PO PRN (18:02)
[2023-06-24] MEDS: Apixaban 2.5 MG TAB PO SCH (20:26)
[2023-06-24] MEDS: Calcium Carbonate 600 MG + Vit D TAB PO SCH (20:26)
[2023-06-24] MEDS: Amlodipine 5 MG TAB PO SCH (20:26)
[2023-06-24] MEDS: Metamucil PACK PO SCH (20:26)
[2023-06-25] MEDS: traMADol HCl 50 MG TAB PO PRN ×3 (05:50→23:47)
[2023-06-25] MEDS: Lidocaine 4% Patch TP SCH (08:10)
[2023-06-25] MEDS: Zinc Sulfate 220 MG CAP PO SCH (08:10)
[2023-06-25] MEDS: Sevelamer Carbonate 800 MG TAB PO SCH ×3 (08:10→16:27)
[2023-06-25] MEDS: Lantus 1000 UNITS/10 ML VIAL SC SCH (08:11)
[2023-06-25] MEDS: Apixaban 2.5 MG TAB PO SCH ×2 (08:11→20:45)
[2023-06-25] MEDS: Acetaminophen 500 MG TAB PO PRN (11:01)
[2023-06-25] MEDS: Amlodipine 5 MG TAB PO SCH (20:45)
[2023-06-25] MEDS: Metamucil PACK PO SCH (20:46)
[2023-06-25] MEDS: Calcium Carbonate 600 MG + Vit D TAB PO SCH (20:46)
[2023-06-25] MEDS: Transdermal Patch Removal TOP SCH (20:47)
[2023-06-26] MEDS: Acetaminophen 500 MG TAB PO PRN ×3 (04:19→17:46)
[2023-06-26] MEDS: traMADol HCl 50 MG TAB PO PRN ×2 (08:19→19:50)
[2023-06-26] MEDS: Sevelamer Carbonate 800 MG TAB PO SCH ×3 (08:19→16:46)
[2023-06-26] MEDS: Apixaban 2.5 MG TAB PO SCH ×2 (08:19→19:50)
[2023-06-26] MEDS: Zinc Sulfate 220 MG CAP PO SCH (08:19)
[2023-06-26] MEDS: Lantus 1000 UNITS/10 ML VIAL SC SCH (08:19)
[2023-06-26] MEDS: Lidocaine 4% Patch TP SCH (08:19)
[2023-06-26] MEDS: Metamucil PACK PO SCH (19:49)
[2023-06-26] MEDS: Calcium Carbonate 600 MG + Vit D TAB PO SCH (19:50)
[2023-06-26] MEDS: Amlodipine 5 MG TAB PO SCH (19:50)
[2023-06-26] MEDS: Transdermal Patch Removal TOP SCH (19:55)
[2023-06-27] MEDS: traMADol HCl 50 MG TAB PO PRN ×4 (04:08→22:22)
[2023-06-27 05:24] LABS: #Basophils 0.1 thou/uL (0.0-0.2); #Eosinphils 0.1 thou/uL (0.0-0.7); #Lymphocytes 2.1 thou/uL (1.20-3.40); #Monocytes 0.8 thou/uL (0.11-0.59); #Neutrophils 4.7 thou/uL (1.40-6.50); %Basophils 1.5 % (0.0-1.0); %Eosinophils 1.7 % (0.0-10.0); %Lymphocytes 26.5 % (21.0-51.0); %Neutrophils 60.4 % (42.0-75.0); Hematocrit 28.5 % (36.0-47.0); Hemoglobin 8.9 g/dL (12.0-16.0); Mean Corpuscular HGB CONC 31.3 g/dL (32.0-36.0); Mean Corpuscular Hemoglobin 32.1 pg (27.0-31.0); Mean Corpuscular Volume 102.8 fl (78.0-98.0); Mean Platelet Volume 6.1 fL (7.4-10.4); Platelet Count 191 10x3/uL (130-400); RBC Distribution Width 18.9 % (11.5-14.5); Red Blood Cell (RBC) Count 2.78 mill/uL (4.20-5.40); White Blood Cell (WBC) Count 7.8 10x3/uL (4.8-10.8)
[2023-06-27 05:48] LABS: ALT (SGPT) 9 U/L (8-55); AST (SGOT) 13 U/L (5-34); Albumin 3.2 g/dL (3.4-4.8); Alkaline Phosphatase 107 U/L (40-110); Anion Gap 15 mmol/L (10-20); BUN (Urea Nitrogen) 21 mg/dL (9.8-20.1); Bilirubin, Total 0.3 mg/dL (0.2-1.2); Calc. Creatinine Clearance 14 mL/min (70-130); Calcium 8.3 mg/dL (7.8-10.44); Carbon Dioxide 22 mmol/L (23-31); Chloride 108 mmol/L (98-107); Estimated GFR 24; Globulin 2.8 g/dL (2.4-3.5); Glucose 101 mg/dL (83-110); Potassium 4.2 mmol/L (3.5-5.1); Sodium 141 mmol/L (136-145)
[2023-06-27] MEDS: Sevelamer Carbonate 800 MG TAB PO SCH ×3 (07:52→17:07)
[2023-06-27] MEDS: Apixaban 2.5 MG TAB PO SCH ×2 (08:02→20:34)
[2023-06-27] MEDS: Lantus 1000 UNITS/10 ML VIAL SC SCH (08:03)
[2023-06-27] MEDS: Zinc Sulfate 220 MG CAP PO SCH (08:03)
[2023-06-27] MEDS: Lidocaine 4% Patch TP SCH (08:09)
[2023-06-27] MEDS: Acetaminophen 500 MG TAB PO PRN (09:32)
[2023-06-27] MEDS: HYDROcodone/Acetaminophen 10/325 mg Tablet PO PRN ×2 (12:06→20:33)
[2023-06-27] MEDS: Calcium Carbonate 600 MG + Vit D TAB PO SCH (20:33)
[2023-06-27] MEDS: Amlodipine 5 MG TAB PO SCH (20:34)
[2023-06-27] MEDS: Ketotifen 0.035% Ophth Soln 5 ml Bottle EA EYE SCH (20:35)
[2023-06-27] MEDS: Metamucil PACK PO SCH (20:35)
[2023-06-27] MEDS: Transdermal Patch Removal TOP SCH (20:41)
[2023-06-28] MEDS: HYDROcodone/Acetaminophen 10/325 mg Tablet PO PRN ×2 (04:35→20:47)
[2023-06-28] MEDS: Apixaban 2.5 MG TAB PO SCH ×2 (08:17→20:47)
[2023-06-28] MEDS: Zinc Sulfate 220 MG CAP PO SCH (08:17)
[2023-06-28] MEDS: Sevelamer Carbonate 800 MG TAB PO SCH ×3 (08:17→17:05)
[2023-06-28] MEDS: Lantus 1000 UNITS/10 ML VIAL SC SCH (08:18)
[2023-06-28] MEDS: Lidocaine 4% Patch TP SCH (08:21)
[2023-06-28] MEDS: Ketotifen 0.035% Ophth Soln 5 ml Bottle EA EYE SCH ×3 (08:21→21:05)
[2023-06-28] MEDS: traMADol HCl 50 MG TAB PO PRN ×2 (08:28→17:07)
[2023-06-28] MEDS: Senokot 8.6 MG TAB PO PRN (11:04)
[2023-06-28] MEDS: Polyethylene Glycol 3350 17 GM Packet PO PRN (11:04)
[2023-06-28] MEDS: Acetaminophen 500 MG TAB PO PRN (11:04)
[2023-06-28] MEDS: Metamucil PACK PO SCH (20:46)
[2023-06-28] MEDS: Calcium Carbonate 600 MG + Vit D TAB PO SCH (20:47)
[2023-06-28] MEDS: Transdermal Patch Removal TOP SCH (20:47)
[2023-06-28] MEDS: Amlodipine 5 MG TAB PO SCH (20:47)
[2023-06-29] MEDS: traMADol HCl 50 MG TAB PO PRN ×2 (06:56→21:21)
[2023-06-29] MEDS: Acetaminophen 500 MG TAB PO PRN ×2 (06:57→16:15)
[2023-06-29] MEDS: Lidocaine 4% Patch TP SCH (08:24)
[2023-06-29] MEDS: Sevelamer Carbonate 800 MG TAB PO SCH ×3 (08:24→16:16)
[2023-06-29] MEDS: Zinc Sulfate 220 MG CAP PO SCH (08:24)
[2023-06-29] MEDS: Senokot 8.6 MG TAB PO PRN (08:24)
[2023-06-29] MEDS: Polyethylene Glycol 3350 17 GM Packet PO PRN (08:24)
[2023-06-29] MEDS: Apixaban 2.5 MG TAB PO SCH ×2 (08:27→20:39)
[2023-06-29] MEDS: Ketotifen 0.035% Ophth Soln 5 ml Bottle EA EYE SCH ×2 (08:27→20:38)
[2023-06-29] MEDS: Lantus 1000 UNITS/10 ML VIAL SC SCH (08:28)
[2023-06-29] MEDS: Metamucil PACK PO SCH (20:39)
[2023-06-29] MEDS: Amlodipine 5 MG TAB PO SCH (20:39)
[2023-06-29] MEDS: Calcium Carbonate 600 MG + Vit D TAB PO SCH (20:40)
[2023-06-29] MEDS: Transdermal Patch Removal TOP SCH (20:40)
[2023-06-30] MEDS: HYDROcodone/Acetaminophen 10/325 mg Tablet PO PRN ×2 (05:38→14:16)
[2023-06-30] MEDS: Sevelamer Carbonate 800 MG TAB PO SCH ×3 (09:00→16:58)
[2023-06-30] MEDS: Apixaban 2.5 MG TAB PO SCH ×2 (09:00→20:58)
[2023-06-30] MEDS: Zinc Sulfate 220 MG CAP PO SCH (09:00)
[2023-06-30] MEDS: traMADol HCl 50 MG TAB PO PRN (09:01)
[2023-06-30] MEDS: Lidocaine 4% Patch TP SCH (09:04)
[2023-06-30] MEDS: Lantus 1000 UNITS/10 ML VIAL SC SCH (09:04)
[2023-06-30] MEDS: Ketotifen 0.035% Ophth Soln 5 ml Bottle EA EYE SCH ×2 (09:05→20:59)
[2023-06-30] MEDS ORDERED: Ondansetron ODT 4 MG TAB PO PRN (20:37)
[2023-06-30] MEDS: Metamucil PACK PO SCH (20:56)
[2023-06-30] MEDS: Calcium Carbonate 600 MG + Vit D TAB PO SCH (20:58)
[2023-06-30] MEDS: Amlodipine 5 MG TAB PO SCH (20:58)
[2023-06-30] MEDS: Transdermal Patch Removal TOP SCH (20:59)
[2023-07-01 05:57] LABS: Anion Gap 15 mmol/L (10-20); BUN (Urea Nitrogen) 25 mg/dL (9.8-20.1); Calc. Creatinine Clearance 13 mL/min (70-130); Calcium 8.1 mg/dL (7.8-10.44); Carbon Dioxide 24 mmol/L (23-31); Chloride 106 mmol/L (98-107); Estimated GFR 23; Magnesium 2.4 mg/dL (1.6-2.6); Potassium 3.8 mmol/L (3.5-5.1); Sodium 141 mmol/L (136-145)
[2023-07-01 06:00] LABS: Phosphorus 2.6 mg/dL (2.3-4.7)
[2023-07-01 06:08] LABS: Glucose 50 mg/dL (83-110)
[2023-07-01] MEDS: Megestrol Acetate 400 MG/10 ML UDCUP PO SCH (08:14)
[2023-07-01] MEDS: Sevelamer Carbonate 800 MG TAB PO SCH ×3 (08:14→17:18)
[2023-07-01] MEDS: Zinc Sulfate 220 MG CAP PO SCH (08:14)
[2023-07-01] MEDS: Apixaban 2.5 MG TAB PO SCH ×2 (08:14→20:34)
[2023-07-01] MEDS: Lidocaine 4% Patch TP SCH (08:14)
[2023-07-01] MEDS: Ketotifen 0.035% Ophth Soln 5 ml Bottle EA EYE SCH ×2 (08:15→20:33)
[2023-07-01] MEDS: Lantus 1000 UNITS/10 ML VIAL SC SCH (09:59)
[2023-07-01] MEDS: Acetaminophen 500 MG TAB PO PRN (19:11)
[2023-07-01] MEDS: Amlodipine 5 MG TAB PO SCH (20:34)
[2023-07-01] MEDS: Metamucil PACK PO SCH (20:34)
[2023-07-01] MEDS: Calcium Carbonate 600 MG + Vit D TAB PO SCH (20:35)
[2023-07-01] MEDS: Transdermal Patch Removal TOP SCH (20:35)
[2023-07-02] MEDS: Zinc Sulfate 220 MG CAP PO SCH (08:28)
[2023-07-02] MEDS: Apixaban 2.5 MG TAB PO SCH ×2 (08:28→20:43)
[2023-07-02] MEDS: Sevelamer Carbonate 800 MG TAB PO SCH ×3 (08:28→17:21)
[2023-07-02] MEDS: Megestrol Acetate 400 MG/10 ML UDCUP PO SCH (08:29)
[2023-07-02] MEDS: Ketotifen 0.035% Ophth Soln 5 ml Bottle EA EYE SCH ×2 (08:29→20:44)
[2023-07-02] MEDS: Lidocaine 4% Patch TP SCH (08:29)
[2023-07-02] MEDS: Acetaminophen 500 MG TAB PO PRN ×2 (09:27→20:43)
[2023-07-02] MEDS: HYDROcodone/Acetaminophen 10/325 mg Tablet PO PRN (14:59)
[2023-07-02] MEDS: Amlodipine 5 MG TAB PO SCH (20:43)
[2023-07-02] MEDS: Calcium Carbonate 600 MG + Vit D TAB PO SCH (20:43)
[2023-07-02] MEDS: Metamucil PACK PO SCH (20:45)
[2023-07-02] MEDS: Transdermal Patch Removal TOP SCH (20:46)
[2023-07-03] MEDS: Lidocaine 4% Patch TP SCH (08:32)
[2023-07-03] MEDS: Megestrol Acetate 400 MG/10 ML UDCUP PO SCH (08:32)
[2023-07-03] MEDS: Sevelamer Carbonate 800 MG TAB PO SCH ×3 (08:33→17:04)
[2023-07-03] MEDS: Apixaban 2.5 MG TAB PO SCH ×2 (08:34→21:13)
[2023-07-03] MEDS: Zinc Sulfate 220 MG CAP PO SCH (08:34)
[2023-07-03] MEDS: Ketotifen 0.035% Ophth Soln 5 ml Bottle EA EYE SCH ×2 (08:36→21:15)
[2023-07-03] MEDS: Acetaminophen 500 MG TAB PO PRN ×2 (08:43→21:13)
[2023-07-03] MEDS: HYDROcodone/Acetaminophen 10/325 mg Tablet PO PRN (10:09)
[2023-07-03 13:31] LABS: Bilirubin Negative (Negative); Blood, Urine Negative (Negative); Clarity Clear (Clear); Glucose, Urine (Dipstick) 100 mg/dL (Negative); Ketone, Urine Negative (Negative); Leukocyte Negative (Negative); Nitrite Negative (Negative); Protein, Urine (Dipstick) 100 mg/dL (Neg-Trace); Specific Gravity, Urine 1.015 (1.005-1.030); Urobilinogen 0.2 mg/dL (Less than 2)
[2023-07-03 13:32] LABS: CAUTI Indications for Culture Dysuria,urgency,freq
[2023-07-03 13:36] LABS: RBC/HPF 0-3 HPF (0-3); Squamous Epithelial 0-3 HPF (0-3); WBC/HPF 0-3 HPF (0-3)
[2023-07-03 13:37] LABS: Bacteria/HPF Rare-Few HPF (None Seen)
[2023-07-03 13:38] LABS: Urine Culture Reflex No No
[2023-07-03] MEDS: Calcium Carbonate 600 MG + Vit D TAB PO SCH (21:13)
[2023-07-03] MEDS: Amlodipine 5 MG TAB PO SCH (21:13)
[2023-07-03] MEDS: Metamucil PACK PO SCH (21:14)
[2023-07-03] MEDS: Transdermal Patch Removal TOP SCH (21:35)
[2023-07-04] MEDS: HYDROcodone/Acetaminophen 10/325 mg Tablet PO PRN (00:46)
[2023-07-04] MEDS: Sevelamer Carbonate 800 MG TAB PO SCH ×3 (08:16→17:02)
[2023-07-04] MEDS: Ketotifen 0.035% Ophth Soln 5 ml Bottle EA EYE SCH ×2 (08:18→21:09)
[2023-07-04] MEDS: Zinc Sulfate 220 MG CAP PO SCH (08:18)
[2023-07-04] MEDS: Apixaban 2.5 MG TAB PO SCH ×2 (08:18→21:08)
[2023-07-04] MEDS: Megestrol Acetate 400 MG/10 ML UDCUP PO SCH (08:18)
[2023-07-04] MEDS: Lidocaine 4% Patch TP SCH (08:20)
[2023-07-04] MEDS: Amlodipine 5 MG TAB PO SCH (21:08)
[2023-07-04] MEDS: Calcium Carbonate 600 MG + Vit D TAB PO SCH (21:08)
[2023-07-04] MEDS: Metamucil PACK PO SCH (21:08)
[2023-07-04] MEDS: Acetaminophen 500 MG TAB PO PRN (21:08)
[2023-07-04] MEDS: Transdermal Patch Removal TOP SCH (21:10)
[2023-07-05] MEDS: Acetaminophen 500 MG TAB PO PRN ×2 (08:12→14:22)
[2023-07-05] MEDS: Sevelamer Carbonate 800 MG TAB PO SCH ×3 (08:12→17:05)
[2023-07-05] MEDS: Apixaban 2.5 MG TAB PO SCH ×2 (08:12→21:06)
[2023-07-05] MEDS: Megestrol Acetate 400 MG/10 ML UDCUP PO SCH (08:13)
[2023-07-05] MEDS: Zinc Sulfate 220 MG CAP PO SCH (08:13)
[2023-07-05] MEDS: Ketotifen 0.035% Ophth Soln 5 ml Bottle EA EYE SCH ×2 (08:13→21:07)
[2023-07-05] MEDS: Lidocaine 4% Patch TP SCH (08:13)
[2023-07-05 12:17] VITALS: BMI 16.6
[2023-07-05] MEDS: Calcium Carbonate 600 MG + Vit D TAB PO SCH (21:06)
[2023-07-05] MEDS: HYDROcodone/Acetaminophen 10/325 mg Tablet PO PRN (21:06)
[2023-07-05] MEDS: Amlodipine 5 MG TAB PO SCH (21:06)
[2023-07-05] MEDS: Metamucil PACK PO SCH (21:07)
[2023-07-05] MEDS: Transdermal Patch Removal TOP SCH (21:08)
[2023-07-06 05:13] LABS: Hematocrit 25.5 % (36.0-47.0); Hemoglobin 8.1 g/dL (12.0-16.0); Platelet Count 154 10x3/uL (130-400)
[2023-07-06] MEDS: Apixaban 2.5 MG TAB PO SCH ×2 (08:59→20:48)
[2023-07-06] MEDS: Ketotifen 0.035% Ophth Soln 5 ml Bottle EA EYE SCH ×2 (08:59→20:49)
[2023-07-06] MEDS: Sevelamer Carbonate 800 MG TAB PO SCH ×3 (08:59→17:21)
[2023-07-06] MEDS: Polyethylene Glycol 3350 17 GM Packet PO PRN (08:59)
[2023-07-06] MEDS: Zinc Sulfate 220 MG CAP PO SCH (08:59)
[2023-07-06] MEDS: Senokot 8.6 MG TAB PO PRN (09:00)
[2023-07-06] MEDS: Acetaminophen 500 MG TAB PO PRN ×4 (09:00→23:49)
[2023-07-06] MEDS: Lidocaine 4% Patch TP SCH (09:00)
[2023-07-06] MEDS: Megestrol Acetate 400 MG/10 ML UDCUP PO SCH (09:01)
[2023-07-06] MEDS: Metamucil PACK PO SCH (20:48)
[2023-07-06] MEDS: Calcium Carbonate 600 MG + Vit D TAB PO SCH (20:48)
[2023-07-06] MEDS: Amlodipine 5 MG TAB PO SCH (20:48)
[2023-07-06] MEDS: Transdermal Patch Removal TOP SCH (20:49)
[2023-07-07] MEDS: Apixaban 2.5 MG TAB PO SCH ×2 (08:37→20:47)
[2023-07-07] MEDS: Zinc Sulfate 220 MG CAP PO SCH (08:37)
[2023-07-07] MEDS: Megestrol Acetate 400 MG/10 ML UDCUP PO SCH (08:37)
[2023-07-07] MEDS: Sevelamer Carbonate 800 MG TAB PO SCH ×3 (08:37→17:00)
[2023-07-07] MEDS: Acetaminophen 500 MG TAB PO PRN ×3 (08:37→21:14)
[2023-07-07] MEDS: Lidocaine 4% Patch TP SCH (08:38)
[2023-07-07] MEDS: Ketotifen 0.035% Ophth Soln 5 ml Bottle EA EYE SCH ×2 (08:41→20:47)
[2023-07-07] MEDS: Metamucil PACK PO SCH (20:46)
[2023-07-07] MEDS: Amlodipine 5 MG TAB PO SCH (20:47)
[2023-07-07] MEDS: Calcium Carbonate 600 MG + Vit D TAB PO SCH (20:47)
[2023-07-07] MEDS: Transdermal Patch Removal TOP SCH (20:47)
[2023-07-08 07:46] VITALS: BP 155/71; TEMP 98.4
[2023-07-08] MEDS: Lidocaine 4% Patch TP SCH (08:50)
[2023-07-08] MEDS: Sevelamer Carbonate 800 MG TAB PO SCH ×2 (08:50→12:10)
[2023-07-08] MEDS: Ketotifen 0.035% Ophth Soln 5 ml Bottle EA EYE SCH (08:50)
[2023-07-08] MEDS: Zinc Sulfate 220 MG CAP PO SCH (08:50)
[2023-07-08] MEDS: Apixaban 2.5 MG TAB PO SCH (08:50)
[2023-07-08] MEDS: Megestrol Acetate 400 MG/10 ML UDCUP PO SCH (08:50)
[2023-07-08] MEDS: Acetaminophen 500 MG TAB PO PRN ×2 (09:28→14:32)
== END 2023-07-08 16:40 | DRG 948 ==
LOC: MADMS 11:27
PROVIDERS: ADMIT Family Medicine; ATTEND Family Medicine
DX: R53.81 Other malaise (principal); N18.4 Chronic kidney disease, stage 4 (severe); N13.2 Hydronephrosis with renal and ureteral calculous obstruction; I48.91 Unspecified atrial fibrillation; I12.9 Hypertensive chronic kidney disease with stage 1 through stage 4 chronic kidney disease, or unspecified chronic kidney disease; E11.22 Type 2 diabetes mellitus with diabetic chronic kidney disease; Z66 Do not resuscitate; D63.1 Anemia in chronic kidney disease; G89.29 Other chronic pain; D50.9 Iron deficiency anemia, unspecified; R26.81 Unsteadiness on feet; M47.816 Spondylosis without myelopathy or radiculopathy, lumbar region; E11.649 Type 2 diabetes mellitus with hypoglycemia without coma; Z79.01 Long term (current) use of anticoagulants; Z88.1 Allergy status to other antibiotic agents; Z88.2 Allergy status to sulfonamides; Z88.7 Allergy status to serum and vaccine; Z91.09 Other allergy status, other than to drugs and biological substances; Z98.890 Other specified postprocedural states; S32.9XXD Fracture of unspecified parts of lumbosacral spine and pelvis, subsequent encounter for fracture with routine healing; S32.10XD Unspecified fracture of sacrum, subsequent encounter for fracture with routine healing
CPT/HCPCS: 36415; 36416; 72131; 80048; 80053; 81001; 83735; 84100; 85014; 85018; 85025; 85049; J1611; J1815; Q0162

== ENCOUNTER 2024-07-25 10:44 | Inpatient (IN) | payer MEDICARE, BC ==
[2024-07-25 19:55] VITALS: BMI 18.8
[2024-07-25] MEDS ORDERED: Acetaminophen 650 MG Suppository PR PRN (19:57)
[2024-07-25] MEDS ORDERED: Acetaminophen 325 MG TAB PO PRN (19:57)
[2024-07-25] MEDS ORDERED: Polyethylene Glycol 3350 17 GM Packet PO PRN (20:24)
[2024-07-25] MEDS ORDERED: Dextrose 50% Abboject 50 ML SYRINGE SLOW IVP PRN (20:37)
[2024-07-25] MEDS ORDERED: Glucagon 1 MG/ML KIT IM PRN (20:37)
[2024-07-25] MEDS ORDERED: Insulin Regular, Human 100 UNIT/ML 10 ML VIAL SC PRN (20:37)
[2024-07-25] MEDS ORDERED: Apixaban 2.5 MG TAB PO SCH (21:00)
[2024-07-25] MEDS ORDERED: Escitalopram Oxalate 10 mg Tablet PO SCH (21:00)
[2024-07-25] MEDS: Amlodipine 5 MG TAB PO SCH (21:02)
[2024-07-26] MEDS: Sevelamer Carbonate 800 MG TAB PO SCH (08:45)
[2024-07-26] MEDS: Cholecalciferol (Vitamin D3) 400 UNITS TAB PO SCH (08:45)
[2024-07-26] MEDS: Calcitriol 0.25 MCG CAP PO SCH (08:45)
[2024-07-26] MEDS: Metoprolol Tartrate 50 MG TAB PO SCH (08:45)
[2024-07-26] MEDS ORDERED: Zinc Gluconate [Zinc] 30 MG Tablet PO SCH (09:00)
[2024-07-26] MEDS ORDERED: Calcium Carbonate 600 MG + Vit D TAB PO SCH (09:00)
[2024-07-26] MEDS ORDERED: Non-Formulary Item 1 EACH (Insulin Glargine,Hum.Rec.Anlog [Basaglar Kwikpen U-100] 100 UN SQ SCH (09:00)
[2024-07-26] MEDS: PSYLLIUM HUSK 0.4 GM PO SCH (09:15)
[2024-07-26] MEDS: Metamucil PACK PO SCH (09:27)
[2024-07-26] MEDS ORDERED: Acetaminophen 325 MG TAB PO PRN (10:05)
[2024-07-27] MEDS: Metamucil PACK PO SCH (08:37)
[2024-08-01] MEDS ORDERED: Metamucil PACK ONE ×2 (08:11→09:00)
[2024-08-01] MEDS ORDERED: Sevelamer Carbonate 800 MG TAB ONE ×3 (08:11→12:11)
[2024-08-01] MEDS ORDERED: Calcitriol 0.25 MCG CAP ONE ×2 (08:11→09:00)
[2024-08-01] MEDS ORDERED: Cholecalciferol (Vitamin D3) 400 UNITS TAB ONE ×2 (08:11→09:00)
[2024-08-02] MEDS ORDERED: Sevelamer Carbonate 800 MG TAB ONE (09:12)
[2024-08-02] MEDS ORDERED: Cholecalciferol (Vitamin D3) 400 UNITS TAB ONE (09:12)
[2024-08-02] MEDS ORDERED: Calcitriol 0.25 MCG CAP ONE (09:12)
[2024-08-02] MEDS ORDERED: Amlodipine 5 MG TAB ONE ×2 (12:50→20:12)
[2024-08-06 05:25] LABS: ALT (SGPT) 10 U/L (8-55); AST (SGOT) 12 U/L (5-34); Albumin 3.1 g/dL (3.4-4.8); Alkaline Phosphatase 71 U/L (40-110); Anion Gap 13 mmol/L (10-20); BUN (Urea Nitrogen) 40 mg/dL (9.8-20.1); Bilirubin, Total 0.6 mg/dL (0.2-1.2); Calc. Creatinine Clearance 9 mL/min (70-130); Calcium 8.3 mg/dL (7.8-10.44); Carbon Dioxide 17 mmol/L (23-31); Chloride 112 mmol/L (98-107); Estimated GFR 13; Glucose 121 mg/dL (83-110); Potassium 3.9 mmol/L (3.5-5.1); Protein, Total 6.1 g/dL (5.8-8.1); Sodium 138 mmol/L (136-145)
[2024-08-06 09:13] LABS: #Basophils 0.1 thou/uL (0.0-0.2); #Eosinophils 0.2 thou/uL (0.0-0.7); #Lymphocytes 1.8 thou/uL (1.20-3.40); #Monocytes 0.9 thou/uL (0.11-0.59); #Neutrophils 5.2 thou/uL (1.40-6.50); %Basophils 1.7 % (0.0-1.0); %Eosinophils 2.3 % (0.0-10.0); %Lymphocytes 21.8 % (21.0-51.0); %Neutrophils 63.2 % (42.0-75.0); Hematocrit 33.6 % (36.0-47.0); Hemoglobin 10.1 g/dL (12.0-16.0); Mean Corpuscular Hemoglobin 31.8 pg (27.0-31.0); Mean Platelet Volume 6.9 fL (7.4-10.4); Platelet Count 183 10x3/uL (130-400); RBC Distribution Width 17.4 % (11.5-14.5); Red Blood Cell (RBC) Count 3.17 mill/uL (4.20-5.40); White Blood Cell (WBC) Count 8.3 10x3/uL (4.8-10.8)
[2024-08-06 09:26] LABS: Anisocytosis MODERATE=16-30 cells (100X) (0-5/hpf); Hypochromia SLIGHT = 6-15 cells (100X) (0-5/hpf); Macrocytosis MODERATE=16-30 cells (100X) (0-5/hpf); Poikilocytosis SLIGHT = 6-15 cells (100X) (0-5/hpf)
[2024-08-06 09:27] LABS: Platelet Adequacy Comment Appears Adequate
[2024-08-06 09:36] LABS: Eosinophils 2 % (0-10); Lymphocytes 22 % (21-51); Monocytes 11 % (0-10)
[2024-08-06] MEDS: EPOETIN ALFA-EPBX (ESRD) 10,000 UNITS/ML VIAL SC SCH (10:47)
[2024-08-07] MEDS: Cholecalciferol 1,000 UNITS (25 MCG) TAB PO SCH (09:00)
[2024-08-08 09:22] VITALS: BMI 17.6
[2024-08-14 07:01] VITALS: BP 147/76; TEMP 97.8
== END 2024-08-14 17:10 | disposition home health service (06) | DRG 560 ==
LOC: MADMS 19:24
PROVIDERS: ADMIT Family Medicine; ATTEND Family Medicine
DX: S12.400D Unspecified displaced fracture of fifth cervical vertebra, subsequent encounter for fracture with routine healing (principal); I48.20 Chronic atrial fibrillation, unspecified; N18.4 Chronic kidney disease, stage 4 (severe); R53.81 Other malaise; I10 Essential (primary) hypertension; Z91.81 History of falling; Z91.048 Other nonmedicinal substance allergy status; Z88.2 Allergy status to sulfonamides; Z91.041 Radiographic dye allergy status; E11.22 Type 2 diabetes mellitus with diabetic chronic kidney disease; Z98.890 Other specified postprocedural states; D50.9 Iron deficiency anemia, unspecified; I65.29 Occlusion and stenosis of unspecified carotid artery; Z66 Do not resuscitate
CPT/HCPCS: 36415; 36416; 72040; 80053; 85025; Q5105